=== PATIENT | female | born 1985 | race Hispanic/Latino ===

== ENCOUNTER 2018-04-25 00:11 | Emergency (ER) | payer MEDICARE ==
[~2018-04-25] VITALS: Ht 167.6 cm; Wt 111.1 kg
--- OUTSIDE RECORDS SUMMARY | 2018-04-25 00:14 | XMS REPORT | Clinical Summary ---
Author Author [facility] Organization [facility] Address Unknown Phone Unavailable Care Team Providers Care Lab Animal Technologist Name Role Phone PCP Unavailable Allergies No Known Allergies Medications End Date Status Medication Sig Dispensed Refills Start Date Active lisinopril (ZESTRIL) 2.5 Take 1 tablet 90 tablet 3 07/02/201 mg tabletIndications: by mouth 5 Diabetes mellitus daily. Active buPROPion (WELLBUTRIN XL) Take 1 tablet 30 tablet 3 300 mg extended release by mouth 5 tabletIndications: every Depression, BMI morning. 40.0-44.9, adult, Sleep difficulties, Anxiety state, unspecified Active traZODone (DESYREL) 100 Take 2 180 tablet 0 07/09/201 mg tabletIndications: tablets by 5 Sleep difficulties, mouth at Insomnia Disorder bedtime nightly. Active metFORMIN (GLUCOPHAGE) Take 2 90 tablet 0 06/28/201 500 mg tabletIndications: tablets by 7 Diabetes mellitus due to mouth 2 times underlying condition with daily (with diabetic nephropathy, meals). without long-term current use of insulin Active gabapentin (NEURONTIN) Take one 90 capsule 0 201 300 mg tablet before 7 capsuleIndications: bedtime. Diabetes mellitus due to underlying condition with diabetic nephropathy, without long-term current use of insulin Active glipiZIDE (GLUCOTROL) 5 Take 1 tablet 30 tablet 0 06/28/201 mg tabletIndications: by mouth 7 Diabetes mellitus due to daily. underlying condition with diabetic nephropathy, without long-term current use of insulin Active acetaminophen (TYLENOL) Take 1 tablet 30 tablet 0 07/28/201 500 mg tabletIndications: by mouth 8 RUQ pain every 6 hours as needed for Pain. Active ibuprofen (MOTRIN) 400 mg Take 1 tablet 30 tablet 0 tabletIndications: RUQ by mouth 8 pain every 6 hours as needed for Pain. Active Problems Problem Noted Date RUQ pain 07/27/2017 Obesity (BMI 30-39.9) 06/28/2016 Exercise counseling 06/28/2016 Dietary counseling 06/28/2016 Homeless 06/12/2016 PTSD (post-traumatic stress disorder) 07/09/2014 MDD (major depressive disorder) 07/09/2014 Polysubstance dependence in early, early partial, sustained full, or 07/09/2014 sustained partial remission Anxiety state, unspecified 07/02/2014 Diabetes mellitus 02/10/2014 BMI 40.0-44.9, adult 02/10/2014 Hyperlipidemia LDL goal < 100 02/10/2014 Sleep difficulties 02/10/2014 Back pain 09/02/2010 Encounters Care Team Description Date Type Specialty Devyn [place]obato Basic Needs 04/01/2018 Telephone Infectious Diseases Ander Stein MD Human immunodeficiency virus I infection (Primary Dx) 04/01/2018 Orders Only Infectious Diseases Devyn Lobato Basic Needs 03/29/2018 Telephone Infectious Diseases Devyn Lobato Basic Needs 03/20/2018 Telephone Infectious Diseases Parvin Dixon MD Chathampally, Yashwant, MD RUQ pain (Primary Dx) 07/27/2017 Emergency Emergency Medicine - 07/28/2017 after 04/24/2017 Immunizations Name Dates Previously Given Next Due Influenza A (H1N1) Vac 02/07/2013 Injection Influenza Vaccine 02/10/2014 PNEUMOCOCCAL 23-VALPS 02/07/2013 VACCINE 25 MCG/0.5 ML INJECTION PPD 06/12/2016 Tdap Tetanus, diphtheria, 02/10/2014 acellular pertussis Vaccine Family History Medical History Relation Name Comments Anxiety disorder Brother Depression Brother Cancer Maternal throat cancer Grandfather Diabetes Maternal Grandfather Hypertension Maternal Grandfather Lipids Maternal Grandfather Lipids Maternal Grandfather Thyroid Maternal Grandfather Blood Disease Maternal Grandmother Blood Disease Maternal Uncle Diabetes Mother Kidney disease Mother Depression Sister Diabetes Sister Lipids Sister Other denies fam hx of heart, strokes Relation Name Status Comments Brother Alive Brother Father Alive Maternal Grandfather Alive Maternal Grandfather Maternal Grandfather Maternal Grandmother Maternal Grandmother Maternal Uncle Mother Alive Paternal Grandfather Other don't know Paternal Grandmother Other don't know Sister Alive Son Alive Social History Date Tobacco Use Types Packs/Day Years Used Former Smoker 0.1 Smokeless Tobacco: Never Used Tobacco Cessation: Counseling Given: No Comments: once in a while Alcohol Use Drinks/Week oz/Week Comments Yes 1 Glasses of 0.5 occasionnaly wine Sex Assigned at Date Recorded Not on file Industry Job Start Date Occupation Not on file Not on file Not on file Travel End Travel History Travel Start No recent travel history available. Last Filed Vital Signs Time Taken Vital Sign Reading 07/28/2017 1:40 AM CDT Blood Pressure 130/70 07/28/2017 1:40 AM CDT Pulse 80 07/28/2017 1:40 AM CDT Temperature 37.2 C (99 F) 07/28/2017 1:40 AM CDT Respiratory Rate 18 07/28/2017 1:40 AM CDT Oxygen Saturation 98% - Inhaled Oxygen - Concentration - Weight - - Height - - Body Mass Index - Plan of Treatment Health Maintenance Due Date Last Done Comments Cervical Cancer Scrn (3 2006 Yrs) DM Retinal Exam (Yearly) 03/21/2015 03/21/2014 DM HGBA1C (Yearly) 07/10/2015 07/09/2014, 02/10/2014 DM Foot Exam (Yearly) 06/28/2017 06/28/2016 DM Microalbumin Urine 07/27/2018 07/27/2017, 06/28/2016, 06/28/2016, Scrn (Yearly) Additional history exists Procedures Comments Procedure Name Priority Date/Time Associated Diagnosis 12 LEAD EKG Routine 07/27/2017 11:[address] ABDOMEN AND PELVIS STAT 07/27/2017 RUQ pain CONTRAST 10:02 PM CDT POCT URINE DIPSTICK - STAT 07/27/2017 9:27 PM CDT UA CHEMISTRIES STAT 07/27/2017 9:20 PM CDT LIPASE STAT 07/27/2017 7:50 PM CDT LIVER PROFILE STAT 07/27/2017 7:50 PM CDT CBC/DIFF STAT 07/27/2017 7:50 PM CDT BMP POC Routine 07/27/2017 7:23 PM CDT VBG POC Routine 07/27/2017 7:23 PM CDT after 04/24/2017 Results * 12 LEAD EKG (07/27/2017 11:40 PM CDT) 12 LEAD EKG FOR SMS CHP Jae Nash [facility] Test Date:2017-07-27 Pat Name: ARELY JOY Department: Room: Gender: F 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 2.Status post cholecystectomy with prominence of the common bile duct and intrahepatic bile ducts, without obstructing lesion identified. Dictated By: Koby Barajas MD, 07/27/2017 10:19 PM I have reviewed the study and agree with the findings in this report. Signed By: Sunitha Mancuso MD, 07/27/2017 10:20 PM Narrative Performed At EXAM: CT ABDOMEN AND PELVIS WITH CONTRAST SMS DATE: 07/27/2017 9:37 PM INDICATION: RUQ, RLQ, and L flank pain with h/o cholecystectomy with complications and retained stones. RUQ pain COMPARISON: None. TECHNIQUE: Volumetric CT acquisition of the abdomen and pelvis after the intravenous administration contrast. Axial, coronal and sagittal reconstructions. Postcontrast phases: Venous. IV contrast: 145 mL Omnipaque 300. Enteric contrast: None. DLP: 1224 mGy-cm FINDINGS: Lines, tubes and hardware: None. Lower thorax: Minimal subsegmental atelectasis is present in the posterior lower lobes. Liver: Normal. Biliary tree: There is prominence of the common bile duct measuring 0.9 cm, without obstructing lesion identified. There is mild intrahepatic biliary ductal dilatation. Gallbladder: Status post cholecystectomy. Clips are present in the gallbladder fossa. Pancreas: Normal. Spleen: Normal. Adrenals: Normal. Kidneys and ureters: Normal. Bladder: Normal. Reproductive organs: Uterus and adnexa are unremarkable. Gastrointestinal tract: Stomach: Normal. Small bowel: Normal. Colon: Normal. Appendix: Normal. Peritoneum, mesentery and retroperitoneum: No free air, ascites or loculated fluid. Lymph nodes: Normal. Vasculature: Normal. Bones: No acute abnormality. Soft tissues: A small fat-containing umbilical hernia is present. Procedure Note Interface, Rad/Mammog In - 07/27/2017 10:46 PM CDT EXAM: CT ABDOMEN AND PELVIS WITH CONTRAST DATE: 07/27/2017 9:37 PM INDICATION: RUQ, RLQ, and L flank pain with h/o cholecystectomy with complications and retained stones. RUQ pain COMPARISON: None. TECHNIQUE: Volumetric CT acquisition of the abdomen and pelvis after the intravenous administration contrast. Axial, coronal and sagittal reconstructions. Postcontrast phases: Venous. IV contrast: 145 mL Omnipaque 300. Enteric contrast: None. DLP: 1224 mGy-cm FINDINGS: Lines, tubes and hardware: None. Lower thorax: Minimal subsegmental atelectasis is present in the posterior lower lobes. Liver: Normal. Biliary tree: There is prominence of the common bile duct measuring 0.9 cm, without obstructing lesion identified. There is mild intrahepatic biliary ductal dilatation. Gallbladder: Status post cholecystectomy. Clips are present in the gallbladder fossa. Pancreas: Normal. Spleen: Normal. Adrenals: Normal. Kidneys and ureters: Normal. Bladder: Normal. Reproductive organs: Uterus and adnexa are unremarkable. Gastrointestinal tract: Stomach: Normal. Small bowel: Normal. Colon: Normal. Appendix: Normal. Peritoneum, mesentery and retroperitoneum: No free air, ascites or loculated fluid. Lymph nodes: Normal. Vasculature: Normal. Bones: No acute abnormality. Soft tissues: A small fat-containing umbilical hernia is present. IMPRESSION IMPRESSION: 1. No acute abnormality in the abdomen or pelvis. 2. Status post cholecystectomy with prominence of the common bile duct and intrahepatic bile ducts, without obstructing lesion identified. Dictated By: Koby Barajas MD, 07/27/2017 10:19 PM I have reviewed the study and agree with the findings in this report. Signed By: Sunitha Mancuso MD, 07/27/2017 10:20 PM Performing Organization Address [facility] Phone Number SMS * POCT URINE DIPSTICK - (07/27/2017 9:27 PM CDT) pass Control negative * UA CHEMISTRIES (07/27/2017 9:20 PM CDT) Color Yellow [facility] Clarity Hazy [facility] Spec [place] 1.012 1.001 - 1.035 [facility] pH 7.0 5 - 8 [facility] Protein 2+ (A) NEG [facility] Glucose Negative NEG [facility] Ketone Negative NEG [facility] Bilirubin Negative NEG [facility] Nitrate Negative NEG [facility] 2 Urobilinogen <1.0 0.2 - 1.0 EU/dL [facility] Leukocyte Trace (A) NEG [facility] Blood 3+ (A) NEG [facility] RBC 1 0 - 4 /HPF [facility] WBC 6 (H) 0 - 5 /HPF [facility] Bacteria Few [facility] Epithelial Cell 3 /HPF [facility] Mucous Present [facility] Specimen Urine Performing Organization Address [facility] Phone Number MISYS [facility] * LIVER PROFILE (07/27/2017 7:50 PM CDT) T Protein 7.3 6.4 - 8.2 g/dL [facility] 1 Albumin 3.4 3.4 - 5.0 g/dL [facility] T Bilirubin 0.5 0.2 - 1.0 mg/dL [facility] 1 Alk Phos 96 45 - 117 U/L [facility] AST 21 15 - 37 U/L [facility] ALT 22 12 - 78 U/L [facility] D Bilirubin 0.1 0.0 - 0.2 mg/dL [facility] 1 Specimen Blood Performing Organization Address [facility]/Zipcode Phone Number MISYS [facility] 1 * LIPASE (07/27/2017 7:50 PM CDT) Lipase 78 73 - 393 U/L [facility] 1 Specimen Blood Performing Organization Address [facility] Phone Number [facility] 1 * CBC/DIFF (07/27/2017 7:50 PM CDT) WBC 7.5 4.5 - 11.0 K/uL [facility] 2 RBC 4.26 4.20 - 5.40 M/uL [facility] 2 Hemoglobin 12.0 12.0 - 16.0 g/dL [facility] 2 Hematocrit 36.0 (L) 37.0 - 47.0 % [facility] 2 MCV 85 82 - 92 fL [facility] 2 MCH 28.2 27.0 - 32.0 pg LB [facility] 2 MCHC 33.3 32.0 - 36.0 g/dL [facility] 2 RDW 37.1 36.4 - 46.3 fL [facility] 2 Platelet 321 150 - 400 K/uL [facility] 2 Mean Platelet 9.3 (L) 9.4 - 12.4 fL [facility] Volume [facility] 2 Percent NRBC 0.0 [facility] Absolute NRBC 0.00 [facility] 2 Neutrophil 75.4 (H) 34.0 - 70.0 % [facility] Lymphocyte 16.8 (L) 20.0 - 50.0 % [facility] Monocyte 7.1 5.0 - 12.0 % [facility] Eosinophil 0.1 (L) 0.7 - 5.0 % [facility] Basophil 0.3 0.1 - 1.2 % [facility] Pct Immat Gran 0.3 0.0 - 0.5 [facility] 2 Neutrophil, Abs 5.67 1.56 - 6.13 K/uL [facility] 2 Lymphocyte, Abs 1.26 1.18 - 3.74 K/uL [facility] 2 Monocyte, Abs 0.53 (H) 0.24 - 0.36 K/uL [facility] 2 Eosinophil, Abs 0.01 (L) 0.04 - 0.36 K/uL [facility] 2 Basophil, Abs 0.02 0.01 - 0.08 K/uL [facility] 2 Absol Immat 0.02 0.00 - 0.03 K/uL [facility] Gran MAIN-[facility] 2 Specimen Blood Performing Organization Address [facility] Phone Number [facility] 2 * VBG POC (07/27/2017 7:23 PM CDT) pH, Carol POC 7.63 (H)Comment: Spec sent to 7.33 - 7.43 [facility] Lab [facility] 1 pCO2, Carol POC 16.7 (L) 38.0 - 50.0 mm Hg [facility] 1 pO2, Carol POC 128 (H) 50 - 75 mm Hg [facility] 1 Base Deficit, 1 [facility] Carol POC [facility] 1 HCO3, Carol POC 17.3 (L) 22.0 - 26.0 mmol/L [facility] 1 % Sat, Carol POC 100 (H) 60 - 85 % [facility] 1 Lactic Acid, 1.10 0.4 - 2.0 mmol/L [facility] Carol POC [facility] 1 TCO2, CAROL POC 18 (L) 21 - 32 mmol/L [facility] 1 Performing Organization Address [facility] Phone Number [facility] 1 * BMP POC (07/27/2017 7:23 PM CDT) CO2 POC 19 (L)Comment: Spec sent to 21 - 32 mmol/L [facility] Lab [facility]IN[facility] 1 Chloride POC 106 98 - 107 mmol/L [facility] 1 Potassium POC 3.8 3.50 - 5.10 mmol/L [facility] 1 Sodium POC 140 136 - 145 mmol/L [facility] 1 Glucose POC 135 (H) 74 - 106 mg/dL [facility] 1 Urea Nitrogen 7 7 - 18 mg/dL [facility] POC [facility] 1 Creatinine POC 0.5 (L) 0.6 - 1.3 mg/dL [facility] 1 Calcium Ionized 0.79 (L) 1.15 - 1.29 mmol/L [facility] POC [facility] 1 Hemoglobin POC 12.9 12.0 - 16.0 g/dL [facility] 1 Hematocrit POC 38.0 37.0 - 47.0 % [facility] 1 GFR, Estimated >60 mL/min/1.73 m2 [facility] 1 GFR, Estim, >60 mL/min/1.73 m2 [facility] Afr-Am MAIN-STATION 1 Performing Organization Address City/State/Zipcode Phone Number MISYS [facility] 1 after 04/24/2017
--- OUTSIDE RECORDS SUMMARY | 2018-04-25 00:15 | XMS REPORT | Summary of Care ---
Author Organization Unknown Address Unknown Phone Unavailable Encounter HQ Renato_jay jay(SIMONA) [id number] Date(s): 06/16/13 - 06/16/13 [facility] [id number] Discharge Disposition: Home Physician Attending: Betsey Guardado MD Reason for Visit 724.02 Problem List No data available for this section Allergies, Adverse Reactions, Alerts Substance Reaction Severity Status NKDA Active Medications No data available for this section Medications Administered During Your Visit No data available for this section Immunizations No data available for this section
--- OUTSIDE RECORDS SUMMARY | 2018-04-25 00:15 | XMS REPORT | Continuity of Care Document ---
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 06/04/2013 [facility] Serology RPR Non Reactive 06/04/2013 [facility] Vital Signs Vital Sign Value Date Comments Source Systolic (mm Hg) 130 07/28/2017 [facility] Diastolic (mm Hg) 70 07/28/2017 [facility] Heart Rate 80 07/28/2017 [facility] Temperature Oral (F) 37.22 Nancy 07/28/2017 [facility] Respitory Rate 18 07/28/2017 [facility] Systolic (mm Hg) 137 07/28/2017 [facility] Diastolic (mm Hg) 112 07/28/2017 [facility] Heart Rate 99 07/28/2017 [facility] Temperature Oral (F) 37.89 Nancy 07/28/2017 [facility] Respitory Rate 20 07/27/2017 [facility] Temperature Oral (F) 98.0 F 10/28/2015 [facility] Systolic (mm Hg) 132 10/28/2015 [facility] Diastolic (mm Hg) 83 10/28/2015 [facility] Heart Rate 88 10/28/2015 [facility] Rate 16 10/28/2015 [facility] Temperature Oral (F) 98.2 F 10/28/2015 [facility] Heart Rate 73 10/28/2015 [facility] Respitory Rate 16 10/28/2015 [facility] Systolic (mm Hg) 119 10/28/2015 [facility] Diastolic (mm Hg) 78 10/28/2015 [facility] Respitory Rate 16 10/28/2015 [facility] Temperature Oral (F) 98.5 F 10/28/2015 [facility] Heart Rate 72 10/28/2015 [facility] Systolic (mm Hg) 119 10/28/2015 [facility] Diastolic (mm Hg) 66 10/28/2015 [facility] Weight 77.273 10/27/2015 [facility] BMI Calculated 26.68 10/27/2015 [facility] Height 170.18 cm 10/27/2015 [facility] Systolic (mm Hg) 133 06/29/2015 [facility] Diastolic (mm Hg) 90 06/29/2015 [facility] Respitory Rate 18 06/29/2015 [facility] Heart Rate 100 06/29/2015 [facility] Temperature Oral (F) 98.1 F 06/29/2015 [facility] Respitory Rate 18 06/29/2015 [facility] Heart Rate 105 06/29/2015 [facility] Systolic (mm Hg) 138 06/29/2015 [facility] Diastolic (mm Hg) 88 06/29/2015 [facility] Temperature Oral (F) 99.6 F 06/29/2015 [facility] Systolic (mm Hg) 142 06/29/2015 [facility] Diastolic (mm Hg) 86 06/29/2015 [facility] Respitory Rate 18 06/29/2015 [facility] Heart Rate 102 06/29/2015 [facility] Temperature Oral (F) 99.1 F 06/29/2015 [facility] BMI Calculated 39.24 06/27/2015 [facility] Weight 113.636 06/27/2015 [facility] Height 170.18 cm 06/27/2015 [facility] Respitory Rate 16 06/30/2013 [facility] Systolic (mm Hg) 115 06/30/[facility] Diastolic (mm Hg) 77 06/30/2013 [facility] Heart Rate 77 06/30/2013 [facility] Weight 237 06/30/2013 [facility] Height 66 06/04/2013 [facility] Systolic (mm Hg) 127 06/04/2013 [facility] Diastolic (mm Hg) 82 06/04/2013 [facility] Heart Rate 82 06/04/2013 [facility] Respitory Rate 16 06/04/2013 [facility] Weight 234.25 06/04/2013 [facility] Encounters Location Location Details Encounter Type Encounter Number Reason For Visit Attending Provider ADM Date DC Date Status Source [facility] Office Visit [id number] Betsey Guardado MD 06/04/2013 06/04/2013 [facility] Outpatient [id number] Betsey Guardado 2013 06/17/2013 [facility] Lab Report [id number] Betsey Guardado MD 06/19/2013 06/19/2013 [facility] Office Visit [id number] Betsey Guardado MD 06/30/2013 06/30/2013 [facility] Inpatient [id number] Gabrielle Bravo 06/27/2015 06/29/2015 [facility] Observation [id number] Giorgio Jacobo 10/27/2015 10/28/2015 [facility] Emergency Center ([id number]) [facility] [id number] Parvin Dixon MD 07/27/2017 07/28/2017 [facility] TH ID Telephone [id number] Devyn Lobato 03/20/2018 [facility] Procedures Procedure Code Date Perfomer Comments Source 12 LEAD EKG 57317 07/28/[address] [facility] [address] ABDOMEN AND PELVIS CONTRAST 75621 07/28/2017 [facility] POCT URINE DIPSTICK - 480497 07/28/2017 [facility] UA CHEMISTRIES 87385 07/28/2017 [facility] CBC/DIFF 44509 07/28/2017 [facility] LIVER PROFILE 19441 07/28/2017 [facility] LIPASE 19016 07/28/2017 [facility] VBG POC 69721 07/28/2017 Unknown [facility] BMP POC 65422 07/28/2017 Unknown [facility] Perfusion of small intestine [id number] 05/28/2015 [facility] smoking/tobacco cessation, patient education and counseling 14 06/30/2013 DONE [facility] smoking/tobacco cessation, patient education and counseling 14 06/04/2013 DONE [facility] section [id number] 09/28/2007 [facility] Cholecystectomy [id number] [facility]
--- OUTSIDE RECORDS SUMMARY | 2018-04-25 00:16 | XMS REPORT | Continuity of Care Document ---
Author Author [facility] Address Unknown Phone Unavailable Care Team Providers Care Certified Surgical Technician Name Role Phone MD Geo, Betsey RICHTER Unavailable Insurance Providers Payer name Policy type / Coverage type Policy ID Covered alliance party ID Policy [place] - [place]ADITIONAL Encounters Encounter Performer Location Date Office Visit Betsey Guardado MD [facility] June 30, 2013 Problems Problem Effective Dates Problem Status DIABETES MELLITUS, TYPE II, UNCONTROLLED Jun 04, 2013 Active PREVENTIVE HEALTH CARE Jun 04, 2013 Active ROUTINE GYNECOLOGICAL EXAMINATION Jun 04, 2013 Active FATIGUE Jun 04, 2013 Active HYPERLIPIDEMIA Jun 04, 2013 Active BACK PAIN, LUMBAR, CHRONIC Jun 04, 2013 Active BODY MASS INDEX 37.0-37.9 ADULT Jun 04, 2013 Active SCREENING EXAMINATION FOR VENEREAL DISEASE Jun 04, 2013 Active DEPRESSION Jun 04, 2013 Active GALLSTONES June 30, 2013 Active UPPER RESPIRATORY INFECTION June 30, 2013 Active Procedures Date Description Comments Jun 04, 2013 smoking status current some day smoker Jun 04, 2013 smoking/tobacco cessation, patient education and counseling DONE June 30, 2013 smoking/tobacco cessation, patient education and counseling DONE Medications Medication Instructions Start Date Status METFORMIN HCL 1000 MG TABS Take one tablet by mouth two times a day Jun 04, 2013 Active NAPROXEN SODIUM 550 MG TABS TAKE ONE TABLET BY MOUTH TWICE A DAY PRN FOR PAIN Jun 04, 2013 Inactive GLIPIZIDE 5 MG TABS Take one tablet by mouth once a day June 30, 2013 Active ZITHROMAX Z-MARITZA 250 MG TABS use as directed June 30, 2013 Active Immunizations Vaccine Date Status pneumococcal immunization administered Jun 04, 2013 completed influenza immunization (Flu Vax) has been administered Jun 04, 2013 completed Vital Signs Date Description Test Result Jun 04, 2013 height E&M - 8302-2 HEIGHT 66 in Jun 04, 2013 blood pressure, systolic - 8480-6 BP SYSTOLIC 127 mm Hg Jun 04, 2013 blood pressure, diastolic - 8462-4 BP DIASTOLIC 82 mm Hg Jun 04, 2013 pulse rate E&M - 8867-4 PULSE RATE 82 /min Jun 04, 2013 respiratory rate E&M - 9279-1 RESP RATE 16 /min Jun 04, 2013 weight Marjorie&M - 3141-9 WEIGHT 234.25 lb June 30, 2013 respiratory rate E&M - 9279-1 RESP RATE 16 /min June 30, 2013 blood pressure, systolic - 8480-6 BP SYSTOLIC 115 mm Hg June 30, 2013 blood pressure, diastolic - 8462-4 BP DIASTOLIC 77 mm Hg June 30, 2013 pulse rate E&M - 8867-4 PULSE RATE 77 /min June 30, 2013 weight Norman - 3141-9 WEIGHT 237 lb Results Date Description Test Name Value Reference Interpretation Status Jun 04, 2013 hemoglobin, blood HGB 14.2 g/dL 12.0-16.0 Jun 04, 2013 hematocrit, blood HCT 42.7 % 36.0-48.0 Jun 04, 2013 platelet count PLATELETS 426 K/CMM /mm3 133-450 Jun 04, 2013 hemoglobin A1C, blood, as % of total hemoglobin HGBA1C 7.9 % <=5.6 High Jun 04, 2013 thyroid stimulating hormone, serum TSH 1.290 uIU/mL 0.360-3.740 Jun 04, 2013 cholesterol, serum CHOLESTEROL 260 mg/dl <=199 High Jun 04, 2013 triglyceride, serum, fasting TRIGLYCERIDE 235 mg/dl <=149 High Jun 04, 2013 HDL cholesterol, serum HDL 64 mg/dl >=61 Jun 04, 2013 LDL cholesterol, serum LDL 149 mg/dl <=99 High Jun 04, 2013 sodium, serum SODIUM 138 MEQ/L mmol/L 135-145 Jun 04, 2013 potassium, serum POTASSIUM 4.2 MEQ/L mmol/L 3.5-5.1 Jun 04, 2013 creatinine, serum CREATININE 0.5 mg/dL 0.5-1.4 Jun 04, 2013 urea nitrogen, blood BUN 11 mg/dL 7-22 Jun 04, 2013 urea nitrogen/creatinine ratio, serum BUN/CREAT 22 null 6-25 Jun 04, 2013 albumin, serum ALBUMIN 4.0 g/dL 3.5-5.0 Jun 04, 2013 calcium, serum CALCIUM 9.4 mg/dL 8.5-10.5 Jun 04, 2013 alanine aminotransferase (SGPT), serum SGPT (ALT) 26 U/L 0-65 Jun 04, 2013 aspartate aminotransferase (SGOT), serum SGOT (AST) 14 U/L 0-37 Jun 04, 2013 alkaline phosphatase, serum ALK PHOS 86 U/L 39-136 Jun 04, 2013 rapid plasma reagin antibody, serum RPR Non Reactive null Non Reactive
--- OUTSIDE RECORDS SUMMARY | 2018-04-25 00:16 | XMS REPORT | Continuity of Care Document ---
Author Author [facility] Organization [facility] Address Unknown Phone Unavailable Care Team Providers Care Web Analytics Developer Name Role Phone MD Geo, Betsey RICHTER Unavailable Insurance Providers Payer name Policy type / Coverage type Policy ID Covered libertarian ID Policy [place] Encounters Encounter Performer Location Date Lab Report Betsey Guardado MD [facility] [place] Jun 19, 2013 Problems Problem Effective Dates Problem Status [...] 2013 Active DEPRESSION Jun 04, 2013 Active Procedures Date Description Comments Jun [...] DAY PRN FOR PAIN Jun 04, 2013 Active Immunizations Vaccine Date Status pneumococcal [...] RATE 16 /min Jun 04, 2013 weight E&M - 3141-9 WEIGHT 234.25 lb Results Date Description Test Name Value [...]
--- OUTSIDE RECORDS SUMMARY | 2018-04-25 00:16 | XMS REPORT | Continuity of Care Document ---
Author Author [facility] Address Unknown Phone Unavailable Care Team Providers Care Diamond Sizer Name Role Phone Geo MORALES, Betsey RICHTER Unavailable Insurance Providers Payer name Policy type / Coverage type Policy ID Covered libertarian ID Policy [place]AD[place] Encounters Encounter Performer Location Date Office Visit Betsey Guardado MD [facility] Jun 04, 2013 Problems Problem Effective Dates Problem Status [...]
--- OUTSIDE RECORDS SUMMARY | 2018-04-25 00:16 | XMS REPORT | Clinical Summary ---
Author Author [facility] Organization [facility] Address Unknown Phone Unavailable Care Team Providers Care Music Professor Name Role Phone PCP Unavailable Allergies No [...] Encounters Care Team Description Date Type Specialty Parvin Dixon MD Chathampally, Yashwant, MD RUQ pain (Primary Dx) 07/27/2017 Emergency Emergency Medicine - 07/28/2017 after 03/09/2017 Immunizations Name Dates Previously Given Next Due [...] POC Routine 07/27/2017 7:23 PM CDT after 03/09/2017 Results * 12 LEAD EKG (07/27/2017 11:40 PM CDT) 12 LEAD EKG FOR [facility] CHP Jae Nash [facility] Test Date:2017-07-27 Pat Name: ARELY JOY Department: Room: Gender: F Debarker Operator: [id number] :[id number] 06-16 Requested By: Order Number: [id number] MD: Omar CODY Measurements Intervals [place] Rate: 79 P:46 [place]: 163 QRS: 38 QRSD: 88 T:67 QT: [...] MD, 07/27/2017 10:20 PM Performing Organization Address City/State/Zipcode Phone Number SMS * POCT URINE DIPSTICK - (07/27/2017 9:27 PM CDT) [facility] pass Control negative * UA CHEMISTRIES (07/27/2017 9:20 PM CDT) Pathologist [facility] Color Yellow [facility] MAIN-STATION 2 Clarity Hazy [facility] MAIN-STATION 2 Spec [place] 1.012 1.001 - 1.035 [facility] MAIN-STATION 2 pH 7.0 5 - 8 [facility] MAIN-STATION 2 Protein 2+ (A) NEG [facility]IN-STATION 2 Glucose Negative NEG [facility]-ST[facility] 2 Ketone Negative NEG [facility]-ST[facility] 2 Bilirubin Negative NEG [facility]IN-ST[facility] 2 Nitrate Negative NEG [facility]IN-ST[facility] 2 Urobilinogen <1.0 0.2 - 1.0 EU/dL [facility] MAIN-STATION 2 Leukocyte Trace (A) NEG [facility]IN-ST[facility] 2 Blood 3+ (A) NEG [facility] MAIN-STATION 2 RBC 1 0 - 4 /HPF LB MAIN-STATION 2 WBC 6 (H) 0 - 5 /HPF [facility] 2 Bacteria Few [facility]IN[facility]ST[facility] 2 Epithelial Cell 3 /HPF [facility] MAIN-STATION 2 Mucous Present [facility] MAIN-STATION 2 Specimen Urine Performing Organization Address [facility] [place] Number MISYS [facility] MAIN-STATION 2 * LIVER PROFILE (07/27/2017 7:50 PM CDT) [facility] T Protein 7.3 6.4 - 8.2 g/dL [facility] MAIN-STATION 1 Albumin 3.4 3.4 - 5.0 g/dL [facility] MAIN-STATION 1 T Bilirubin 0.5 0.2 - 1.0 mg/dL [facility] MAIN-STATION 1 Alk Phos 96 45 - 117 U/L [facility] MAIN-STATION 1 AST 21 15 - 37 U/L [facility] MAIN-STATION 1 ALT 22 12 - 78 U/L [facility] MAIN-STATION 1 D Bilirubin 0.1 0.0 - 0.2 mg/dL [facility] MAIN-STATION 1 Specimen Blood Performing Organization Address [facility] [place] Number MISYS [facility] MAIN-STATION 1 * LIPASE (07/27/2017 7:50 PM CDT) [facility] Lipase 78 73 - 393 U/L [facility] MAIN-STATION 1 Specimen Blood Performing Organization Address City/State/Zipcode Phone Number MISYS [facility] MAIN-STATION 1 * CBC/DIFF (07/27/2017 7:50 PM CDT) WBC 7.5 4.5 - 11.0 K/uL [facility] MAIN-STATION 2 RBC 4.26 4.20 - 5.40 M/uL [facility] MAIN-STATION 2 Hemoglobin 12.0 12.0 - 16.0 g/dL [facility] MAINSTATION 2 Hematocrit 36.0 (L) 37.0 - 47.0 % [facility] MAINSTATION 2 MCV 85 82 - 92 fL [facility] MAIN-STATION 2 MCH 28.2 27.0 - 32.0 pg [facility] MAIN-STATION 2 MCHC 33.3 32.0 - 36.0 g/dL [facility] MAIN-STATION 2 RDW 37.1 36.4 - 46.3 fL [facility] MAIN-STATION 2 Platelet 321 150 - 400 K/[facility] Mean Platelet 9.3 (L) 9.4 - 12.4 fL [facility] Volume MAIN-STATION 2 Percent NRBC 0.0 [facility] MAIN-STATION 2 Absolute NRBC 0.00 [facility] MAIN-STATION 2 Neutrophil 75.4 (H) 34.0 - 70.0 % [facility] MAIN-STATION 2 Lymphocyte 16.8 (L) 20.0 - 50.0 % [facility] MAIN-STATION 2 Monocyte 7.1 5.0 - 12.0 % [facility] MAIN-STATION 2 Eosinophil 0.1 (L) 0.7 - 5.0 % [facility] MAIN-STATION 2 Basophil 0.3 0.1 - 1.2 % [facility] MAIN-STATION 2 Pct Immat Gran 0.3 0.0 - 0.5 [facility] MAIN-STATION 2 Neutrophil, Abs 5.67 1.56 - 6.13 K/uL [facility] MAIN-STATION 2 Lymphocyte, Abs 1.26 1.18 - 3.74 K/uL [facility] MAIN-STATION 2 Monocyte, Abs 0.53 (H) 0.24 - 0.36 K/uL [facility] MAIN-STATION 2 Eosinophil, Abs 0.01 (L) 0.04 - 0.36 K/uL [facility] MAIN-STATION 2 Basophil, Abs 0.02 0.01 - 0.08 K/uL [facility] MAIN-STATION 2 Absol Immat 0.02 0.00 - 0.03 K/uL [facility] Gran MAIN-STATION 2 Specimen Blood Performing Organization Address [facility] Phone Number [facility] MAINSTATION 2 * VBG POC (07/27/2017 7:23 PM CDT) pH, Carol POC 7.63 (H)Comment: Spec sent to 7.33 - 7.43 [facility] Lab MAIN-STATION 1 pCO2, Carol POC 16.7 (L) 38.0 - 50.0 mm Hg [facility] MAIN-STATION 1 pO2, Carol POC 128 (H) 50 - 75 mm Hg [facility] MAIN-STATION 1 Base Deficit, 1 [facility] Carol POC MAIN-STATION 1 HCO3, Carol POC 17.3 (L) 22.0 - 26.0 mmol/L [facility] MAIN-STATION 1 % Sat, Carol POC 100 (H) 60 - 85 % [facility] MAIN-STATION 1 Lactic Acid, 1.10 0.4 - 2.0 mmol/L [facility] Carol POC MAIN-STATION 1 TCO2, CAROL POC 18 (L) 21 - 32 mmol/L [facility] ER-STATION 1 Performing Organization Address [facility] [place] Number [facility] MAIN-STATION 1 * BMP POC (07/27/2017 7:23 PM CDT) CO2 POC 19 (L)Comment: Spec sent to 21 - 32 mmol/L [facility] Lab MAIN-STATION 1 Chloride POC 106 98 - 107 mmol/L [facility] MAIN-STATION 1 Potassium POC 3.8 3.50 - 5.10 mmol/L [facility] MAIN-STATION 1 Sodium POC 140 136 - 145 mmol/L [facility] MAIN-STATION 1 Glucose POC 135 (H) 74 - 106 mg/dL [facility] MAIN-STATION 1 Urea Nitrogen 7 7 - 18 mg/dL [facility] POC MAIN-STATION 1 Creatinine POC 0.5 (L) 0.6 - 1.3 mg/dL [facility] MAIN-STATION 1 Calcium Ionized 0.79 (L) 1.15 - 1.29 mmol/L [facility] POC MAIN-STATION 1 Hemoglobin POC 12.9 12.0 - 16.0 g/dL [facility] MAIN-STATION 1 Hematocrit POC 38.0 37.0 - 47.0 % [facility] MAIN-STATION 1 GFR, Estimated >60 mL/min/1.73 m2 [facility] MAIN-STATION 1 GFR, Estim, >60 mL/min/1.73 m2 [facility] MAIN-STATION 1 Performing Organization Address City/State/Zipcode Phone Number DOMO [facility] MAIN-STATION 1 after 03/09/2017 Insurance Type Payer Benefit Subscriber ID Effective Phone Address Plan / Dates Group [facility] xxxxxxxxx 2013-P [phone] [facility] [id number] [facility] [id number]
--- OUTSIDE RECORDS SUMMARY | 2018-04-25 00:16 | XMS REPORT | Clinical Summary ---
Author Author [facility] Organization [facility] Address Unknown Phone Unavailable Care Team Providers Care Swiss Machinist Name Role Phone PCP Unavailable Allergies No [...] 07/27/2017 Emergency Emergency Medicine - 07/28/2017 after 03/18/2017 Immunizations Name Dates Previously Given Next Due [...] Body Mass Index - Plan of Treatment Care Team Description Date Type Specialty New Patient 04/01/2018 Office Visit New Patient 04/01/2018 Office Visit New Patient 04/01/2018 Ancillary Radiology Procedure New Patient 04/01/2018 Lab Appointment Lab Health Maintenance Due Date Last Done Comments [...] POC Routine 07/27/2017 7:23 PM CDT after 03/18/2017 Results * 12 LEAD EKG (07/27/2017 11:40 PM CDT) 12 LEAD EKG FOR SMS CHP Jae Nash [facility] Test Date:2017-07-27 Pat Name: ARELY JOY Department: Room: Gender: F Customer Business Manager: [id number] :1985-0 06-16 Requested By: Order Number: [email or web address] payton MD: Omar CODY Measurements Intervals [place] Rate: 79 P:46 [place]: 163 QRS: 38 QRSD: 88 T:67 QT: [...] MD, 07/27/2017 10:20 PM Performing Organization Address [facility] Phone Number SMS * POCT URINE DIPSTICK - (07/27/2017 9:27 PM CDT) Pathologist [facility] pass Control negative * UA CHEMISTRIES (07/27/2017 9:20 PM CDT) Pathologist [facility] Color Yellow [facility] 2 Clarity Hazy [facility] 2 Spec [place] 1.012 1.001 - 1.035 [facility] MAIN-STATION 2 [...] MAIN-STATION 2 Specimen Urine Performing Organization Address [facility] Phone Number MISYS [facility] MAIN-STATION 2 * LIVER PROFILE (07/27/2017 7:50 PM CDT) Pathologist [facility] T Protein 7.3 6.4 - 8.2 g/dL [facility]IN[facility]ST[facility] 1 Albumin 3.4 3.4 - 5.0 g/dL [facility] 1 T Bilirubin 0.5 0.2 - 1.0 mg/dL [facility] 1 Alk Phos 96 45 - 117 U/L [facility] 1 AST 21 15 - 37 U/L [facility]IN-STATION 1 ALT 22 12 - 78 U/L [facility] MAIN-STATION 1 D Bilirubin 0.1 0.0 - 0.2 mg/dL LB MAIN-STATION 1 Specimen Blood Performing Organization Address [facility] Phone Number MISYS [facility] MAIN-STATION 1 * LIPASE (07/27/2017 7:50 PM CDT) Lipase 78 73 - 393 U/L [facility] MAIN-STATION 1 Specimen Blood Performing Organization Address City/State/Zipcode Phone Number DOMO [facility] MAIN-STATION 1 * CBC/DIFF (07/27/2017 7:50 PM CDT) WBC 7.5 4.5 - 11.0 K/uL [facility] MAIN-STATION 2 RBC 4.26 4.20 - 5.40 M/uL LB MAIN-STATION 2 Hemoglobin 12.0 12.0 - 16.0 g/dL [facility] MAIN-STATION 2 Hematocrit 36.0 (L) 37.0 - 47.0 % LB MAIN-STATION 2 MCV 85 82 - 92 fL [facility] MAIN-STATION 2 MCH 28.2 27.0 - 32.0 pg LB MAIN-STATION 2 MCHC 33.3 32.0 - 36.0 g/dL [facility] MAIN-STATION 2 RDW 37.1 36.4 - 46.3 fL [facility] MAIN-STATION 2 Platelet 321 150 - 400 K/uL [facility] MAIN-STATION 2 Mean Platelet 9.3 (L) 9.4 - 12.4 fL [facility] Volume MAIN-STATION 2 Percent NRBC 0.0 [facility] MAIN-STATION 2 Absolute NRBC 0.00 [facility] MAIN-STATION 2 Neutrophil 75.4 (H) 34.0 - 70.0 % LB MAIN-STATION 2 Lymphocyte 16.8 (L) 20.0 - 50.0 % [facility] MAIN-STATION 2 Monocyte 7.1 5.0 - 12.0 % [facility] MAIN-STATION 2 Eosinophil 0.1 (L) 0.7 - 5.0 % [facility] MAIN-STATION 2 Basophil 0.3 0.1 - 1.2 % [facility] MAIN-STATION 2 Pct Immat Gran 0.3 0.0 - 0.5 [facility] MAIN-STATION 2 Neutrophil, Abs 5.67 1.56 - 6.13 K/uL [facility] MAIN-STATION 2 Lymphocyte, Abs 1.26 1.18 - 3.74 K/uL [facility] MAIN-STATION 2 Monocyte, Abs 0.53 (H) 0.24 - 0.36 K/uL [facility] MAIN-STATION 2 Eosinophil, Abs 0.01 (L) 0.04 - 0.36 K/uL [facility] MAIN-STATION 2 Basophil, Abs 0.02 0.01 - 0.08 K/uL [facility] MAIN-STATION 2 Absol Immat 0.02 0.00 - 0.03 K/uL [facility] Gran MAIN-STATION 2 Specimen Blood Performing Organization Address [facility] Phone Number DOMO [facility] MAINSTATION 2 * VBG POC (07/27/2017 7:23 PM CDT) pH, Carol POC 7.63 (H)Comment: Spec sent to 7.33 - 7.43 [facility] Lab MAIN-STATION 1 pCO2, Carol POC 16.7 (L) 38.0 - 50.0 mm Hg [facility] MAIN-STATION 1 pO2, Carol POC 128 (H) 50 - 75 mm Hg [facility] MAIN-STATION 1 Base Deficit, 1 [facility] Carol POC MAIN-STATION 1 HCO3, Carol POC 17.3 (L) 22.0 - 26.0 mmol/L [facility] MAIN-STATION 1 % Sat, Carol POC 100 (H) 60 - 85 % [facility] MAIN-STATION 1 Lactic Acid, 1.10 0.4 - 2.0 mmol/L [facility] Carol POC MAIN-STATION 1 TCO2, CAROL POC 18 (L) 21 - 32 mmol/L [facility] MAIN-STATION 1 Performing Organization Address [facility] Phone [facility] 1 * BMP POC (07/27/2017 7:23 PM CDT) CO2 POC 19 (L)Comment: Spec sent to 21 - 32 mmol/L [facility] Lab MAIN-STATION 1 Chloride POC 106 98 - 107 mmol/L [facility] MAIN-STATION 1 Potassium POC 3.8 3.50 - 5.10 mmol/L [facility] MAIN-STATION 1 Sodium POC 140 136 - 145 mmol/L [facility] MAIN-STATION 1 Glucose POC 135 (H) 74 - 106 mg/dL [facility] MAIN-STATION 1 Urea Nitrogen 7 7 - 18 mg/dL [facility] POC MAIN-STATION 1 Creatinine POC 0.5 (L) 0.6 - 1.3 mg/dL [facility] MAIN-STATION 1 Calcium Ionized 0.79 (L) 1.15 - 1.29 mmol/L [facility] POC MAIN-STATION 1 Hemoglobin POC 12.9 12.0 - 16.0 g/dL [facility] MAIN-STATION 1 Hematocrit POC 38.0 37.0 - 47.0 % [facility] MAIN-STATION 1 GFR, Estimated >60 mL/min/1.73 m2 [facility] MAIN-STATION 1 GFR, Estim, >60 mL/min/1.73 m2 [facility] Afr-Am MAIN-STATION 1 Performing Organization Address City/State/Zipcode Phone Number [facility] MAIN-STATION 1 after 03/18/2017 Insurance Type Payer Benefit Subscriber ID Effective Phone Address Plan / Dates Group [facility] xxxxxxxxx 2013-P [phone] [facility] [id number] [facility] [address]
--- OUTSIDE RECORDS SUMMARY | 2018-04-25 00:16 | XMS REPORT | Clinical Summary ---
Author Author [facility] Organization [facility] Address Unknown Phone Unavailable Care Team Providers Care Warehouse Driver Name Role Phone PCP Unavailable Allergies No Known Allergies Current Medications Prescription Sig. Disp. Refills Start End Date Status Date lisinopril (ZESTRIL) 2.5 Take 1 tablet by mouth 90 tablet 3 07/03/19 Active mg tabletIndications: daily. 15 Diabetes mellitus buPROPion (WELLBUTRIN XL) Take 1 tablet by mouth 30 tablet 3 07/03/19 Active 300 mg extended release every morning. 15 tabletIndications: Depression, BMI 40.0-44.9, adult, Sleep difficulties, Anxiety state, unspecified traZODone (DESYREL) 100 Take 2 tablets by mouth 180 tablet 0 20 Active mg tabletIndications: at bedtime nightly. 15 Sleep difficulties, INSOMNIA DISORDER metFORMIN (GLUCOPHAGE) Take 2 tablets by mouth 2 90 tablet 0 06/29/19 Active 500 mg tabletIndications: times daily (with meals). 17 Diabetes mellitus due to underlying condition with diabetic nephropathy, without long-term current use of insulin gabapentin (NEURONTIN) Take one tablet before 90 capsule 0 06/29/19 Active 300 mg bedtime. 17 capsuleIndications: Diabetes mellitus due to underlying condition with diabetic nephropathy, without long-term current use of insulin glipiZIDE (GLUCOTROL) 5 Take 1 tablet by mouth 30 tablet 0 20 Active mg tabletIndications: daily. 17 Diabetes mellitus due to underlying condition with diabetic nephropathy, without long-term current use of insulin Active Problems Problem Noted Date Obesity (BMI 30-39.9) 06/28/2016 Exercise counseling 06/28/2016 Dietary counseling 06/28/2016 Homeless 06/12/2016 PTSD (post-traumatic stress disorder) 07/09/2014 MDD (major depressive disorder) 07/09/2014 Polysubstance dependence in early, early partial, sustained full, or 07/09/2014 sustained partial remission Anxiety state, unspecified 07/02/2014 Diabetes mellitus 02/10/2014 BMI 40.0-44.9, adult 02/10/2014 Hyperlipidemia LDL goal < 100 02/10/2014 Sleep difficulties 02/10/2014 Back pain 09/02/2010 Encounters Date Type Specialty Care Team Description 07/27/2017 Emergency Emergency Medicine after 07/26/2016 Immunizations Name Dates Previously Given Next Due [...] know Sister Alive Son Alive Social History Tobacco Use Types Packs/Day Years Used Date Former Smoker 0.1 Smokeless Tobacco: Never Used Tobacco Cessation: Counseling Given: No Comments: once in a while Alcohol Use Drinks/Week oz/Week Comments Yes 1 Glasses of 0.5 occasionnaly wine Sex Assigned at Date Recorded Not on file Last Filed Vital Signs Vital Sign Reading Time Taken Blood Pressure 137/112 07/27/2017 7:00 PM CDT Pulse 99 07/27/2017 7:00 PM CDT Temperature 37.9 C (100.2 F) 07/27/2017 7:00 PM CDT Respiratory Rate 20 07/27/2017 6:41 PM CDT Oxygen Saturation 93% 07/27/2017 7:00 PM CDT Inhaled Oxygen - - Concentration Weight - - Height - - Body Mass Index - - Plan of Treatment Health Maintenance Due Date Last Done Comments CERVICAL CANCER SCRN (3 2006 YRS) DM RETINAL EXAM (YEARLY) 03/21/2015 03/21/2014 DM HGBA1C (YEARLY) 07/10/2015 07/09/2014, 02/10/2014 DM FOOT EXAM (YEARLY) 06/28/2017 06/28/2016 DM MICROALBUMIN URINE 06/28/2017 06/28/2016, 06/28/2016, 06/28/2016, SCRN (YEARLY) Additional history exists Results * VBG POC (07/27/2017 7:23 PM) Component Value Ref Range pH, Carol POC 7.63 (H)Comment: Spec sent to Lab 7.33 - 7.43 pCO2, Carol POC 16.7 (L) 38.0 - 50.0 mm Hg pO2, Carol POC 128 (H) 50 - 75 mm Hg Base Deficit, Carol POC 1 HCO3, Carol POC 17.3 (L) 22.0 - 26.0 mmol/L % Sat, Carol POC 100 (H) 60 - 85 % Lactic Acid, Carol POC 1.10 0.4 - 2.0 mmol/L TCO2, CAROL POC 18 (L) 21 - 32 mmol/L Specimen Performing Laboratory MISYS * BMP POC (07/27/2017 7:23 PM) Component Value Ref Range CO2 POC 19 (L)Comment: Spec sent to Lab 21 - 32 mmol/L Chloride POC 106 98 - 107 mmol/L Potassium POC 3.8 3.50 - 5.10 mmol/L Sodium POC 140 136 - 145 mmol/L Glucose POC 135 (H) 74 - 106 mg/dL Urea Nitrogen POC 7 7 - 18 mg/dL Creatinine POC 0.5 (L) 0.6 - 1.3 mg/dL Calcium Ionized POC 0.79 (L) 1.15 - 1.29 mmol/L Hemoglobin POC 12.9 12.0 - 16.0 g/dL Hematocrit POC 38.0 37.0 - 47.0 % GFR, Estimated >60 mL/min/1.73 m2 GFR, Estim, Afr-Am >60 mL/min/1.73 m2 Specimen Performing Laboratory MISYS after 07/26/2016
--- OUTSIDE RECORDS SUMMARY | 2018-04-25 00:16 | XMS REPORT | Summary of Care ---
Author Author [facility] Organization [facility] Address Unknown Phone Unavailable Encounter RAMIRO Flores(SIMONA) [id number] Date(s): 06/26/15 - 06/29/15 [facility] [address] [place] [address]- [phone] Discharge Disposition: Home Attending Physician: Gabrielle Bravo MD Admitting Physician: Gabrielle Bravo MD Vital Signs 1 2 3 Most recent to oldest [Reference Range]: 170.18 cm (06/26/15 9:51 PM) Height 98.1 DegF (06/29/15 4:20 PM) 99.6 DegF *HI* (06/29/15 11:49 AM) 99.1 DegF (06/29/15 8:25 AM) Temperature Oral [96.4-99.1 DegF] 133/90 mmHg (06/29/15 4:20 PM) 138/88 mmHg (06/29/15 11:49 AM) 142/86 mmHg *HI* (06/29/15 8:25 AM) Blood Pressure [90-140/60-90 mmHg] 18 BRMIN (06/29/15 4:20 PM) 18 BRMIN (06/29/15 11:49 AM) 18 BRMIN (06/29/15 8:25 AM) Respiratory Rate [14-20 BRMIN] 100 bpm (06/29/15 4:20 PM) 105 bpm *HI* (06/29/15 11:49 AM) 102 bpm *HI* (06/29/15 8:25 AM) Peripheral Pulse Rate [60-100 bpm] 113.636 kg (06/26/15 9:51 PM) Weight 39.24 m2 (06/26/15 9:51 PM) Body Mass Index Problem List Condition Effective Dates Status Health Status Informant Diabetes(Confirmed) Resolved Hypokalemia(Confirme Resolved d) Allergies, Adverse Reactions, Alerts Substance Reaction Severity Status NKDA Active Medications acetaminophen 650 mg, 2 tab, Route: PO, Drug form: TAB, Q4H, Dosing Weight 113.636, kg, PRN Pa in Score 4-6, Start date: 06/27/15 7:59:00 CDT, Stop date: 07/27/15 7:58:00 CDT Notes: Do not exceed 4 gm/day. (Same as: Tylenol) Start Date: 06/27/15 Stop Date: 06/29/15 Status: Discontinued acetaminophen (ANES) (ANES) Route: IV, Drug form: INJ, Start date: 06/28/15 13:05:00 CDT, Stop date: 6 14:05:00 CDT Start Date: 06/28/15 Stop Date: 06/28/15 Status: Completed acetaminophen-codeine #3 2 tab, Route: PO, Drug Form: TAB, Dosing Weight 113.636, kg, Q4H, PRN Pain Score 4-6, Start date: 06/28/15 13:48:00 CDT, Duration: 30 day, Stop date: 07/28/15 1 3:47:00 CDT Notes: Do not exceed 4gm/day of acetaminophen. (Same as: Tylenol with Codeine # 3) Start Date: 06/28/15 Stop Date: 06/29/15 Status: Discontinued acetaminophen-codeine #3 1 tab, Route: PO, Drug Form: TAB, Dosing Weight 113.636, kg, Q4H, PRN Pain Score 4-6, Start date: 06/28/15 13:48:00 CDT, Duration: 30 day, Stop date: 07/28/15 1 3:47:00 CDT Notes: Do not exceed 4gm/day of acetaminophen. (Same as: Tylenol with Codeine # 3) Start Date: 06/28/15 Stop Date: 06/29/15 Status: Discontinued Dextrose 50% Syringe 25 gm, 50 mL, Route: IVP, Drug Form: INJ, Dosing Weight 113.636, kg, PRN, PRN Bl ood Glucose Results, Start date: 06/27/15 20:01:00 CDT, Duration: 30 day, Stop d ate: 07/27/15 20:00:00 CDT Start Date: 06/27/15 Stop Date: 06/29/15 Status: Discontinued Dextrose 50% Syringe 12.5 gm, 25 mL, Route: IVP, Drug Form: INJ, Dosing Weight 113.636, kg, PRN, PRN Blood Glucose Results, Start date: 06/27/15 20:01:00 CDT, Duration: 30 day, Stop date: 07/27/15 20:00:00 CDT Start Date: 06/27/15 Stop Date: 06/29/15 Status: Discontinued fentaNYL 100 microgram, 2 mL, Route: IV, Drug form: INJ, ONCE, Dosing Weight 113.636, kg, PRN Pain Score 6-10, Priority: NOW, Start date: 06/28/15 7:51:00 CDT, Stop date: 06/28/15 7:51:00 CDT Notes: (Same as: Sublimaze) Preservative free. Start Date: 06/28/15 Stop Date: 06/28/15 Status: Completed fentaNYL 50 microgram, 1 mL, Route: IV, Drug form: INJ, ONCE, Dosing Weight 113.636, kg, Start date: 06/28/15 11:56:00 CDT, Stop date: 06/28/15 11:56:00 CDT Notes: (Same as: Sublimaze) Preservative free. Start Date: 06/28/15 Stop Date: 06/28/15 Status: Completed fentaNYL 50 microgram, 1 mL, Route: IV, Drug form: INJ, ONCE, Dosing Weight 113.636, kg, Start date: 06/28/15 8:16:00 CDT, Stop date: 06/28/15 8:16:00 CDT Notes: (Same as: Sublimaze) Preservative free. Start Date: 06/28/15 Stop Date: 06/28/15 Status: Completed fentaNYL 50 microgram, Route: IV, ONCE, Dosing Weight 113.636, kg, Start date: 06/28/15 8 :16:00 CDT, Stop date: 06/28/15 8:16:00 CDT Start Date: 06/28/15 Stop Date: 06/28/15 Status: Completed fentaNYL (ANES) Route: IV, Drug form: INJ, ONCE, Stop date: 06/28/15 13:56:00 CDT Start Date: 06/28/15 Stop Date: 06/28/15 Status: Completed gabapentin PO, BID, 0 Refill(s) Start Date: 06/27/15 Status: Ordered glipiZIDE PO, Daily, 0 Refill(s) Start Date: 06/27/15 Status: Ordered glucagon 1 mg, Route: IM, Drug form: PDR/INJ, PRN, Dosing Weight 113.636, kg, PRN Blood G lucose Results, Start date: 06/27/15 20:01:00 CDT, Duration: 30 day, Stop date: 07/27/15 20:00:00 CDT Start Date: 06/27/15 Stop Date: 06/29/15 Status: Discontinued glycopyrrolate (ANES) Route: IV, Drug form: INJ, ONCE, Stop date: 06/28/15 14:10:00 CDT Start Date: 06/28/15 Stop Date: 06/28/15 Status: Completed ibuprofen 400 mg, PO, Q6H, PRN Pain Score 4-6, 0 Refill(s) Start Date: 06/27/15 Status: Ordered ibuprofen 400 mg oral tablet 400 mg, 1 tab, Route: PO, Drug form: TAB, ONCE, Dosing Weight 113.636, kg, Prior ity: NOW, Start date: 06/27/15 22:06:00 CDT, Stop date: 06/27/15 22:06:00 CDT Notes: (Same as: Raheem)"Do Not Crush" Give with food. Start Date: 06/27/15 Stop Date: 06/27/15 Status: Completed insulin aspart 5 unit, 0.05 mL, Route: SUB-Q, Drug form: SOLN, TID-Before Meals, Dosing Weight 113.636, kg, PRN Blood Glucose Results, Start date: 06/27/15 20:01:00 CDT, Durat ion: 30 day, Stop date: 07/27/15 20:00:00 CDT Notes: Roll in palms of hands gently; Do not shake vigorously. (Same as: NovoLO G)"single patient use only"WASTE: F/P - Black; E - Municipal Trash Bin Stable f or 28 days at room temperature.Expires in days from Date Start Date: 06/27/15 Stop Date: 06/29/15 Status: Discontinued insulin aspart 3 unit, 0.03 mL, Route: SUB-Q, Drug form: SOLN, Bedtime, Dosing Weight 113.636, kg, PRN Blood Glucose Results, Start date: 06/27/15 20:01:00 CDT, Duration: 30 d ay, Stop date: 07/27/15 20:00:00 CDT Notes: Roll in palms of hands gently; Do not shake vigorously. (Same as: Stevenson Garcia)"single patient use only"WASTE: F/P - Black; E - Municipal Trash Bin Stable f or 28 days at room temperature.Expires in days from Date Start Date: 06/27/15 Stop Date: 06/29/15 Status: Discontinued insulin aspart 1 unit, 0.01 mL, Route: SUB-Q, Drug form: SOLN, Bedtime, Dosing Weight 113.636, kg, PRN Blood Glucose Results, Start date: 06/27/15 20:01:00 CDT, Duration: 30 d ay, Stop date: 07/27/15 20:00:00 CDT Notes: Roll in palms of hands gently; Do not shake vigorously. (Same as: Stevenson Garcia)"single patient use only"WASTE: F/P - Black; E - Municipal Trash Bin Stable f or 28 days at room temperature.Expires in days from Date Start Date: 06/27/15 Stop Date: 06/29/15 Status: Discontinued insulin aspart 2 unit, 0.02 mL, Route: SUB-Q, Drug form: SOLN, Bedtime, Dosing Weight 113.636, kg, PRN Blood Glucose Results, Start date: 06/27/15 20:01:00 CDT, Duration: 30 d ay, Stop date: 07/27/15 20:00:00 CDT Notes: Roll in palms of hands gently; Do not shake vigorously. (Same as: Stevenson Garcia)"single patient use only"WASTE: F/P - Black; E - Municipal Trash Bin Stable f or 28 days at room temperature.Expires in days from Date Start Date: 06/27/15 Stop Date: 06/29/15 Status: Discontinued insulin aspart 4 unit, 0.04 mL, Route: SUB-Q, Drug form: SOLN, TID-Before Meals, Dosing Weight 113.636, kg, PRN Blood Glucose Results, Start date: 06/27/15 20:01:00 CDT, Durat ion: 30 day, Stop date: 07/27/15 20:00:00 CDT Notes: Roll in palms of hands gently; Do not shake vigorously. (Same as: Stevenson Garcia)"single patient use only"WASTE: F/P - Black; E - Municipal Trash Bin Stable f or 28 days at room temperature.Expires in days from Date Start Date: 06/27/15 Stop Date: 06/29/15 Status: Discontinued insulin aspart 3 unit, 0.03 mL, Route: SUB-Q, Drug form: SOLN, TID-Before Meals, Dosing Weight 113.636, kg, PRN Blood Glucose Results, Start date: 06/27/15 20:01:00 CDT, Durat ion: 30 day, Stop date: 07/27/15 20:00:00 CDT Notes: Roll in palms of hands gently; Do not shake vigorously. (Same as: Stevenson Garcia)"single patient use only"WASTE: F/P - Black; E - Municipal Trash Bin Stable f or 28 days at room temperature.Expires in days from Date Start Date: 06/27/15 Stop Date: 06/29/15 Status: Discontinued insulin aspart 1 unit, 0.01 mL, Route: SUB-Q, Drug form: SOLN, TID-Before Meals, Dosing Weight 113.636, kg, PRN Blood Glucose Results, Start date: 06/27/15 20:01:00 CDT, Durat ion: 30 day, Stop date: 07/27/15 20:00:00 CDT Notes: Roll in palms of hands gently; Do not shake vigorously. (Same as: Stevenson Garcia)"single patient use only"WASTE: F/P - Black; E - Municipal Trash Bin Stable f or 28 days at room temperature.Expires in days from Date Start Date: 06/27/15 Stop Date: 06/29/15 Status: Discontinued insulin aspart 2 unit, 0.02 mL, Route: SUB-Q, Drug form: SOLN, TID-Before Meals, Dosing Weight 113.636, kg, PRN Blood Glucose Results, Start date: 06/27/15 20:01:00 CDT, Durat ion: 30 day, Stop date: 07/27/15 20:00:00 CDT Notes: Roll in palms of hands gently; Do not shake vigorously. (Same as: Stevenson Garcia)"single patient use only"WASTE: F/P - Black; E - Municipal Trash Bin Stable f or 28 days at room temperature.Expires in days from Date Start Date: 06/27/15 Stop Date: 06/29/15 Status: Discontinued insulin aspart 4 unit, 0.04 mL, Route: SUB-Q, Drug form: SOLN, Bedtime, Dosing Weight 113.636, kg, PRN Blood Glucose Results, Start date: 06/27/15 20:01:00 CDT, Duration: 30 d ay, Stop date: 07/27/15 20:00:00 CDT Notes: Roll in palms of hands gently; Do not shake vigorously. (Same as: Stevenson Garcia)"single patient use only"WASTE: F/P - Black; E - Municipal Trash Bin Stable f or 28 days at room temperature.Expires in days from Date Start Date: 06/27/15 Stop Date: 06/29/15 Status: Discontinued Insulin regular 10 unit, 0.1 mL, Route: IVP, Drug form: INJ, ONCE, Dosing Weight 113.636, kg, Pr iority: STAT, Start date: 06/27/15 0:32:00 CDT, Stop date: 06/27/15 0:32:00 CDT Notes: (Same as: Humulin R and NovoLIN R)WASTE: F/P - Black; E - Municipal Trash Bin (Do not shake) Start Date: 06/27/15 Stop Date: 06/27/15 Status: Completed Insulin regular 5 unit, Route: IV, ONCE, Dosing Weight 113.636, kg, Start date: 06/28/15 8:42:00 CDT, Stop date: 06/28/15 8:42:00 CDT Start Date: 06/28/15 Stop Date: 06/28/15 Status: Completed Insulin regular 10 unit, Route: IV, ONCE, Dosing Weight 113.636, kg, Start date: 06/28/15 8:16:0 0 CDT, Stop date: 06/28/15 8:16:00 CDT Start Date: 06/28/15 Stop Date: 06/28/15 Status: Completed Lactated Ringers Injection IV (ANES) (ANES) Route: IV, Total Volume: 1,000, Start date: 06/28/15 12:30:00 CDT, Stop date: 13:30:00 CDT Start Date: 06/28/15 Stop Date: 06/28/15 Status: Completed Lactated Ringers Injection IV 1,000 mL 1,000 mL, Rate: 25 ml/hr, Infuse over: 40 hr, Route: IV, Dosing Weight 113.636 k g, Total Volume: 1,000, Start date: 06/28/15 9:45:00 CDT, Duration: 1 day, Stop date: 06/29/15 9:44:00 CDT Start Date: 06/28/15 Stop Date: 06/28/15 Status: Discontinued lidocaine (ANES) Route: IV, Drug form: INJ, ONCE, Stop date: 06/28/15 13:56:00 CDT Start Date: 06/28/15 Stop Date: 06/28/15 Status: Completed magnesium sulfate 2gm / NS 50ml (premixed) 2 gm, 50 mL, Route: IVPB, Drug form: INJ, ONCE, Dosing Weight 113.636, kg, Start date: 06/28/15 6:32:00 CDT, Duration: 2 hr, Stop date: 06/28/15 6:32:00 CDT Notes: WASTE: F/P - Sink; E - Municipal Trash Bin Start Date: 06/28/15 Stop Date: 06/28/15 Status: Completed metFORMIN 1,000 mg, PO, BID, 0 Refill(s) Start Date: 06/27/15 Status: Ordered morphine Sulfate 4 mg, 2 mL, Route: IVP, Drug form: INJ, ONCE, Dosing Weight 113.636, kg, Priorit y: STAT, Start date: 06/26/15 22:40:00 CDT, Stop date: 06/26/15 22:40:00 CDT Notes: (Same as:MORPhine Sulfate) Start Date: 06/26/15 Stop Date: 06/26/15 Status: Completed morphine Sulfate 4 mg, 2 mL, Route: IVP, Drug form: INJ, Q4H, Dosing Weight 113.636, kg, PRN Pain Score 7-10, Start date: 06/27/15 7:59:00 CDT, Duration: 30 day, Stop date: 06/28 03/13 7:58:00 CDT Notes: (Same as:MORPhine Sulfate) Start Date: 06/27/15 Stop Date: 06/29/15 Status: Discontinued neostigmine (ANES) Route: IV, Drug form: INJ, ONCE, Stop date: 06/28/15 14:10:00 CDT Start Date: 06/28/15 Stop Date: 06/28/15 Status: Completed NS (Bolus) IV 1,000 mL, 1,000 ml/hr, Infuse Over: 1 hr, Route: IV, ONCE, Priority: STAT, Dosin g Weight 113.636 kg, Start date: 06/27/15 0:32:00 CDT, Duration: 1 doses or time s, Stop date: 06/27/15 0:32:00 CDT Start Date: 06/27/15 Stop Date: 06/27/15 Status: Completed ondansetron 4 mg, 2 mL, Route: IVP, Drug form: INJ, ONCE, Dosing Weight 113.636, kg, Priorit y: STAT, Start date: 06/26/15 22:40:00 CDT, Stop date: 06/26/15 22:40:00 CDT Notes: (Same as: Zofran) MEDICATION WASTE Product Size: 4 mgProduct Was jose alfredo: ___ mg Start Date: 06/26/15 Stop Date: 06/26/15 Status: Completed ondansetron 4 mg, 2 mL, Route: IVP, Drug form: INJ, Q6H, Dosing Weight 113.636, kg, PRN Naus ea & Vomiting, Start date: 06/27/15 7:59:00 CDT, Duration: 30 day, Stop date: 07/27/15 7:58:00 CDT Notes: (Same as: Zofran) MEDICATION WASTE Product Size: 4 mgProduct Was jose alfredo: ___ mg Start Date: 06/27/15 Stop Date: 06/29/15 Status: Discontinued ondansetron (ANES) Route: IV, Drug form: INJ, ONCE, Stop date: 06/28/15 14:10:00 CDT Start Date: 06/28/15 Stop Date: 06/28/15 Status: Completed potassium chloride 40 mEq, 2 tab, Route: PO, Drug form: ERTAB, ONCE, Dosing Weight 113.636, kg, Sandra ority: STAT, Start date: 06/27/15 0:06:00 CDT, Stop date: 06/27/15 0:06:00 CDT Notes: (Same as: K-Dur 20)"Do Not Crush" With food and full glass of water Start Date: 06/27/15 Stop Date: 06/27/15 Status: Completed potassium chloride 40 mEq, 400 mL, Route: IV, Drug form: INJ, ONCE, Dosing Weight 113.636, kg, Star t date: 06/28/15 6:30:00 CDT, Stop date: 06/28/15 6:30:00 CDT Notes: Infuse at a rate of 10 mEq/hr.(Same as: KCL) Start Date: 06/28/15 Stop Date: 06/28/15 Status: Completed potassium chloride 40 mEq, 2 tab, Route: PO, Drug form: ERTAB, ONCE, Dosing Weight 113.636, kg, Sta rt date: 06/29/15 17:37:00 CDT, Stop date: 06/29/15 17:37:00 CDT Notes: (Same as: K-Dur 20)"Do Not Crush" With food and full glass of water Start Date: 06/29/15 Stop Date: 06/29/15 Status: Completed potassium chloride 10 mEq, 100 mL, Route: IVPB, Drug form: INJ, Q1H, Dosing Weight 113.636, kg, Sta rt date: 06/28/15 10:00:00 CDT, Duration: 3 doses or times, Stop date: 06/28/15 12:00:00 CDT Notes: Infuse at a rate of 10 mEq/hr.(Same as: KCL) Start Date: 06/28/15 Stop Date: 06/28/15 Status: Completed potassium chloride 40 mEq, 2 tab, Route: PO, Drug form: ERTAB, ONCE, Dosing Weight 113.636, kg, Sta rt date: 06/28/15 6:29:00 CDT, Stop date: 06/28/15 6:29:00 CDT Notes: (Same as: K-Dur 20)"Do Not Crush" With food and full glass of water Start Date: 06/28/15 Stop Date: 06/28/15 Status: Completed propofol (ANES) Route: IV, Drug form: INJ, ONCE, Stop date: 06/28/15 13:56:00 CDT Start Date: 06/28/15 Stop Date: 06/28/15 Status: Completed rocuronium (ANES) Route: IV, Drug form: INJ, ONCE, Stop date: 06/28/15 13:56:00 CDT Start Date: 06/28/15 Stop Date: 06/28/15 Status: Completed Saline Flush 0.9% 10 ml, Route: IVP, Drug Form: INJ, Dosing Weight 113.636, kg, PRN, PRN Line Flus h, Start date: 06/27/15 7:59:00 CDT, Duration: 30 day, Stop date: 07/27/15 7:58: 00 CDT Notes: (Same as: BD Posiflush) Start Date: 06/27/15 Stop Date: 06/29/15 Status: Discontinued Sodium Chloride 0.9% (Bolus) IV 1,000 mL, 1,000 ml/hr, Infuse Over: 1 hr, Route: IV, 1,000, Drug form: INJ, ONCE , Priority: STAT, Dosing Weight 113.636 kg, Start date: 06/26/15 22:40:00 CDT, D uration: 1 doses or times, Stop date: 06/26/15 22:40:00 CDT Start Date: 06/26/15 Stop Date: 06/26/15 Status: Completed Sodium Chloride 0.9% IV (ANES) (ANES) Route: IV, Total Volume: 1,000, Start date: 06/28/15 12:37:00 CDT, Stop date: 13:37:00 CDT Start Date: 06/28/15 Stop Date: 06/28/15 Status: Completed Sodium Chloride 0.9% IV (ANES) (ANES) + cefOXitin (ANES) (ANES) Route: IV, Drug form: INJ, Start date: 06/28/15 12:50:00 CDT, Stop date: 6 13:50:00 CDT Start Date: 06/28/15 Stop Date: 06/28/15 Status: Completed Sodium Chloride 0.9% IV 1,000 mL 1,000 mL, Rate: 125 ml/hr, Infuse over: 8 hr, Route: IV, Dosing Weight 113.636 k g, Total Volume: 1,000, Start date: 06/27/15 7:59:00 CDT, Duration: 30 day, Stop date: 07/27/15 7:58:00 CDT Start Date: 06/27/15 Stop Date: 06/29/15 Status: Discontinued succinylcholine (ANES) Route: IV, Drug form: INJ, ONCE, Stop date: 06/28/15 13:56:00 CDT Start Date: 06/28/15 Stop Date: 06/28/15 Status: Completed Tylenol 975 mg, Route: PO, Drug form: TAB, ONCE, Dosing Weight 113.636, kg, Priority: ST AT, Start date: 06/27/15 0:00:00 CDT, Stop date: 06/27/15 0:00:00 CDT Start Date: 06/27/15 Stop Date: 06/27/15 Status: Completed Tylenol with Codeine #3 oral tablet 1 - 2 tab, PO, Q4H, PRN Pain, X 3 day, # 20 tab, 0 Refill(s) Start Date: 06/29/15 Stop Date: 07/02/15 Status: Ordered Zosyn + Sodium Chloride 0.9% IV 100 mL 3.375 gm, Route: IVPB, ABXQ8H, Dosing Weight 113.636, kg, Start date: 06/27/15 1 6:00:00 CDT, Duration: 30 day, Stop date: 07/27/15 8:00:00 CDT Notes: (Same as: Zosyn)Dosing based on Piperacillin component MEDICATION WA SHREYAS Product Size: 3375 mgProduct Wasted: ___ mg Start Date: 06/27/15 Stop Date: 06/29/15 Status: Discontinued Zosyn + Sodium Chloride 0.9% IV 100 mL 3.375 gm, Route: IVPB, ONCE, Dosing Weight 113.636, kg, Priority: STAT, Start da te: 06/27/15 3:08:00 CDT, Stop date: 06/27/15 3:08:00 CDT Notes: (Same as: Zosyn)Dosing based on Piperacillin component MEDICATION WA SHREYAS Product Size: 3375 mgProduct Wasted: ___ mg Start Date: 06/27/15 Stop Date: 06/27/15 Status: Completed Results ELECTROLYTES 1 2 3 Most recent to oldest [Reference Range]: 136 mEq/L (06/28/15 4:05 AM) 134 mEq/L *LOW* (06/26/15 11:01 PM) Sodium Lvl [135-145 mEq/L] 3.3 mEq/L *LOW* (06/29/15 12:01 PM) 2.5 mEq/L 1 *CRIT* (06/28/15 4:05 AM) 3.1 mEq/L *LOW* (06/26/15 11:01 PM) Potassium Lvl [3.5-5.1 mEq/L] 101 mEq/L (06/28/15 4:05 AM) 98 mEq/L (06/26/15 11:01 PM) Chloride Lvl [95-109 mEq/L] 25 mEq/L (06/28/15 4:05 AM) 23 mEq/L *LOW* (06/26/15 11:01 PM) CO2 [24-32 mEq/L] 12.5 mEq/L (06/28/15 4:05 AM) 16.1 mEq/L (06/26/15 11:01 PM) AGAP [10.0-20.0 mEq/L] 1Result Comment: Critical Result(s) called to marsha martin at 06/28/2015 05:13 by lgb. Read back OK. CHEM PANEL 1 2 3 Most recent to oldest [Reference Range]: 0.42 mg/dL *LOW* (06/28/15 4:05 AM) 0.88 mg/dL (06/26/15 11:01 PM) Creatinine Lvl [0.50-1.40 mg/dL] 138 mL/min/1.73m2 1 *NA* (06/28/15 4:05 AM) 89 mL/min/1.73m2 2 *NA* (06/26/15 11:01 PM) eGFR 6 mg/dL *LOW* (06/28/15 4:05 AM) 15 mg/dL (06/26/15 11:01 PM) BUN [7-22 mg/dL] 14 (06/28/15 4:05 AM) 17 (06/26/15 11:01 PM) B/C Ratio [6-25] 219 mg/dL *HI* (06/28/15 4:05 AM) 384 mg/dL *HI* (06/26/15 11:01 PM) Glucose Lvl [70-99 mg/dL] 5.4 g/dL *LOW* (06/28/15 4:05 AM) 7.8 g/dL (06/26/15 11:01 PM) Total Protein [6.4-8.4 g/dL] 2.5 g/dL *LOW* (06/28/15 4:05 AM) 3.5 g/dL (06/26/15 11:01 PM) Albumin Lvl [3.5-5.0 g/dL] 2.9 g/dL (06/28/15 4:05 AM) 4.3 g/dL *HI* (06/26/15 11:01 PM) Globulin [2.0-4.0 g/dL] 0.9 (06/28/15 4:05 AM) 0.8 (06/26/15 11:01 PM) A/G Ratio [0.7-1.6] 7.5 mg/dL *LOW* (06/28/15 4:05 AM) 8.7 mg/dL (06/26/15 11:01 PM) Calcium Lvl [8.5-10.5 mg/dL] 1.9 mg/dL (06/29/15 12:01 PM) 1.7 mg/dL *LOW* (06/28/15 4:05 AM) Magnesium Lvl [1.8-2.4 mg/dL] 306 unit/L *HI* (06/28/15 4:05 AM) 401 unit/L *HI* (06/26/15 11:01 PM) ALT [0-65 unit/L] 189 unit/L *HI* (06/28/15 4:05 AM) 1262 unit/L *HI* (06/26/15 11:01 PM) AST [0-37 unit/L] 115 unit/L (06/28/15 4:05 AM) 174 unit/L *HI* (06/26/15 11:01 PM) Alk Phos [39-136 unit/L] 4.5 mg/dL *HI* (06/28/15 4:05 AM) 2.1 mg/dL *HI* (06/26/15 11:01 PM) Bili Total [0.2-1.3 mg/dL] 87 unit/L (06/26/15 11:01 PM) Lipase Lvl [73-393 unit/L] 1.9 mMol/L (06/26/15 11:01 PM) Lactic Acid Lvl [0.5-2.2 mMol/L] 1Result Comment: The eGFR is calculated using the [...] from the National Kid[employer] Education Program ( NKDEP) which additionally recommends that when the eGFR is used in patients with extremes of body mass index for purposes of drug dosing, the eGFR should be mul tiplied by the estimated BMI. 2Result Comment: The eGFR is calculated using the [...] from the National Kid[employer] Education Program ( NKDEP) which additionally recommends that when the eGFR is used in patients with extremes of body mass index for purposes of drug dosing, the eGFR should be mul tiplied by the estimated BMI. URINE CHEM 1 2 3 Most recent to oldest [Reference Range]: Negative (06/27/15 1:00 AM) U Preg [Negative] URINE AND STOOL 1 2 3 Most recent to oldest [Reference Range]: Marked *ABN* (06/27/15 1:00 AM) UA Turbidity [Clear] Yellow *NA* (06/27/15 1:00 AM) UA Color [Yellow] 6.0 (06/27/15 1:00 AM) UA pH [5.0-8.0] 1.029 (06/27/15 1:00 AM) UA Spec Grav [<=1.030] 500 mg/dL *ABN* (06/27/15 1:00 AM) UA Glucose [Negative mg/dL] Large *ABN* (06/27/15 1:00 AM) UA Blood [Negative] 80 mg/dL *ABN* (06/27/15 1:00 AM) UA Ketones [Negative mg/dL] 30 mg/dL *ABN* (06/27/15 1:00 AM) UA Protein [Negative mg/dL] <=1.0 mg/dL *NA* (06/27/15 1:00 AM) UA Urobilinogen [0.1-1.0 mg/dL] Negative *NA* (06/27/15 1:00 AM) UA Bili [Negative] Moderate *ABN* (06/27/15 1:00 AM) UA Leuk Est [Negative] Negative (06/27/15 1:00 AM) UA Nitrite [Negative] >182 /HPF *HI* (06/27/15 1:00 AM) UA WBC [0-5 /HPF] >182 /HPF *HI* (06/27/15 1:00 AM) UA RBC [0-2 /HPF] Occasional /HPF *NA* (06/27/15 1:00 AM) UA Bacteria [None Seen /HPF] Few /LPF *NA* (06/27/15 1:00 AM) UA Sq Epi [Few /LPF] IMMUNOLOGY 1 2 3 Most recent to oldest [Reference Range]: Negative *NA* (06/27/15 9:33 AM) Hep Bs Ag [Negative] Negative *NA* (06/27/15 9:33 AM) Hep B Core IgM [Negative] Negative *NA* (06/27/15 9:33 AM) Hep A IgM [Negative] Negative *NA* (06/27/15 9:33 AM) Hep C Ab HEMATOLOGY 1 2 3 Most recent to oldest [Reference Range]: 7.5 K/CMM (06/28/15 4:05 AM) 6.9 K/CMM (06/26/15 11:01 PM) WBC [3.7-10.4 K/CMM] 4.47 M/CMM (06/28/15 4:05 AM) 5.24 M/CMM (06/26/15 11:01 PM) RBC [4.20-5.40 M/CMM] 12.8 g/dL (06/28/15 4:05 AM) 14.8 g/dL (06/26/15 11:01 PM) Hgb [12.0-16.0 g/dL] 38.1 % (06/28/15 4:05 AM) 44.5 % (06/26/15 11:01 PM) Hct [36.0-48.0 %] 85.3 fL (06/28/15 4:05 AM) 84.9 fL (06/26/15 11:01 PM) MCV [80.0-98.0 fL] 28.7 pg (06/28/15 4:05 AM) 28.2 pg (06/26/15 11:01 PM) MCH [27.0-31.0 pg] 33.7 g/dL (06/28/15 4:05 AM) 33.2 g/dL (06/26/15 11:01 PM) MCHC [32.0-36.0 g/dL] 13.2 % (06/28/15 4:05 AM) 13.2 % (06/26/15 11:01 PM) RDW [11.5-14.5 %] 246 K/CMM (06/28/15 4:05 AM) 352 K/CMM (06/26/15 11:01 PM) Platelet [133-450 K/CMM] 8.0 fL (06/28/15 4:05 AM) 7.6 fL (06/26/15 11:01 PM) MPV [7.4-10.4 fL] 91.2 % *HI* (06/28/15 4:05 AM) 96.1 % *HI* (06/26/15 11:01 PM) Segs [45.0-75.0 %] 5.0 % *LOW* (06/28/15 4:05 AM) 2.0 % *LOW* (06/26/15 11:01 PM) Lymphocytes [20.0-40.0 %] 3.4 % (06/28/15 4:05 AM) 1.6 % *LOW* (06/26/15 11:01 PM) Monocytes [2.0-12.0 %] 0.1 % (06/28/15 4:05 AM) 0.2 % (06/26/15 11:01 PM) Eosinophils [0.0-4.0 %] 0.3 % (06/28/15 4:05 AM) 0.1 % (06/26/15 11:01 PM) Basophils [0.0-1.0 %] 6.8 K/CMM (06/28/15 4:05 AM) 6.6 K/CMM (06/26/15 11:01 PM) Segs-Bands # [1.5-8.1 K/CMM] 0.4 K/CMM *LOW* (5/2/16 4:05 AM) 0.1 K/CMM *LOW* (06/26/15 11:01 PM) Lymphocytes # [1.0-5.5 K/CMM] 0.3 K/CMM (06/28/15 4:05 AM) 0.1 K/CMM (06/26/15 11:01 PM) Monocytes # [0.0-0.8 K/CMM] Immunizations No data available for this section Procedures Procedure Date Related Diagnosis Body Site Cholecystectomy Social History Social History Type Response Alcohol Never Smoking Status Current some day smoker; Type: Cigarettes; Exposure to Tobacco Smoke None; Cigarette Smoking Last 365 Days No; Reg Smoking Cessation Counseling No Assessment and Plan Extracted from: Title: General Surgery Progress Author: Omar Bruce MD Date: 06/29/15 Note * Impression and Plan Diagnosis: Abdominal pain ([id number] R10.9, Working, Medical). I described the operative findings. I recommended advancing diet as tolerated. OK to DC home. Ready for D/C: Yes. Extracted from: Title: General Surgery Consult * Author: Omar Bruce MD Date: 06/27/15 Impression and Plan Diagnosis Abdominal pain ([id number] R10.9, Working, Medical). The cause of her pain is unclear. The CT shows findings consistent with a partial small bowel obstruction and there are foreign bodies in the GB fossa consistent with surgical clips and gallstones. It is common for gallstones to escape the GB during dissection. These rarely result in any clinical symptoms, but I cannot be sure they are the cause of her pain. I explained the surgical approach and its limitations. Since I cannot pinpoint the cause of her pain I cannot be certain that an attempt to remove the stones would be effective in relieving her symptoms( nor can I be certain that I can find all the retained stones). After a lengthy discussion of the risks and benefits to this operation, she gives informed consent. I will schedule i for tomorrow..
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
--- OUTSIDE RECORDS SUMMARY | 2018-04-25 00:16 | XMS REPORT | Continuity of Care Document ---
Author Author [facility] Address Unknown Phone Unavailable Care Team Providers Care Human Resources Assistant Name Role Phone Betsey Guardado MD, PP Unavailable Insurance Providers Payer name Policy type / Coverage type Policy ID Covered libertarian ID Policy [place] - TM[place] - TRADITIONAL Encounters Encounter Performer Location Date Office Visit Betsey Guardado MD [facility] Jun 04, [...]
--- OUTSIDE RECORDS SUMMARY | 2018-04-25 00:17 | XMS REPORT | Clinical Summary ---
Author Author [facility] Organization [facility] Address Unknown Phone Unavailable Care Team Providers Care Mail Handler Sorter Name Role Phone PCP Unavailable Allergies No [...] 07/27/2017 Emergency Emergency Medicine - 07/28/2017 after 02/10/2017 Immunizations Name Dates Previously Given Next Due [...] POC Routine 07/27/2017 7:23 PM CDT after 02/10/2017 Results * 12 LEAD EKG (07/27/2017 11:40 PM CDT) 12 LEAD EKG FOR [facility] Jae Nash [facility] Test Date:2017-07-27 Pat Name: ARELY JOY Department: Room: Gender: F Band Saw Marker: [id number] :1986-0 06-16 Requested By: Order Number: [id number] MD: Omar CODY Measurements Intervals [place] Rate: 79 P:46 AL: 163 QRS: 38 QRSD: 88 T:67 QT: [...] URINE DIPSTICK - (07/27/2017 9:27 PM CDT) [facility] pass Control negative * UA CHEMISTRIES (07/27/2017 9:20 PM CDT) Pathologist [facility] Color Yellow [facility] MAIN-STATION 2 Clarity Hazy [facility] MAIN-ST[facility] 2 Spec Martin 1.012 1.001 - 1.035 [facility] MAIN-STATION 2 [...] MAIN-STATION 2 Specimen Urine Performing Organization Address [facility] Phone Number MISYS [facility] MAIN-STATION 2 * LIVER PROFILE (07/27/2017 7:50 PM CDT) [facility] T Protein 7.3 6.4 - 8.2 g/dL [facility] MAIN-STATION 1 Albumin 3.4 3.4 - 5.0 g/dL [facility] MAIN-ST[facility] 1 T Bilirubin 0.5 0.2 - 1.0 mg/dL [facility] MAIN-ST[facility] 1 Alk Phos 96 45 - 117 U/L [facility] MAIN-STATION 1 AST 21 15 - 37 U/L [facility] MAIN-STATION 1 ALT 22 12 - 78 U/L [facility] MAIN-ST[facility] 1 D Bilirubin 0.1 0.0 - 0.2 mg/dL [facility] MAIN-STATION 1 Specimen Blood Performing Organization Address [facility] Phone Number MISYS [facility] MAIN-STATION 1 * LIPASE (07/27/2017 7:50 PM CDT) [facility] Lipase 78 73 - 393 U/L [facility] MAIN-STATION 1 Specimen Blood Performing Organization Address City/State/Zipcode Phone Number MISYS [facility] MAIN-STATION 1 * CBC/DIFF (07/27/2017 7:50 PM CDT) WBC 7.5 4.5 - 11.0 K/uL [facility] MAIN-STATION 2 RBC 4.26 4.20 - 5.40 M/uL [facility] MA[facility]-STATION 2 Hemoglobin 12.0 12.0 - 16.0 g/dL [facility] MA[facility] 2 Hematocrit 36.0 (L) 37.0 - 47.0 % [facility] MA[facility] 2 MCV 85 82 - 92 fL [facility] MAIN-STATION 2 MCH 28.2 27.0 - 32.0 pg [facility] MAIN-[facility] 2 MCHC 33.3 32.0 - 36.0 g/dL [facility] MAIN-STATION 2 RDW 37.1 36.4 - 46.3 fL [facility] MAIN-STATION 2 Platelet 321 150 - 400 K/uL [facility] Mean Platelet 9.3 (L) 9.4 - 12.4 fL [facility] Volume MAIN-STATION 2 Percent NRBC 0.0 [facility] MAIN-ST[facility] 2 Absolute NRBC 0.00 [facility] MAIN-[facility] 2 Neutrophil 75.4 (H) 34.0 - 70.0 % [facility] MA[facility] 2 Lymphocyte 16.8 (L) 20.0 - 50.0 % [facility] MA[facility] 2 Monocyte 7.1 5.0 - 12.0 % [facility] MA[facility] 2 Eosinophil 0.1 (L) 0.7 - 5.0 % [facility] MA[facility] 2 Basophil 0.3 0.1 - 1.2 % [facility] MAIN-STATION 2 Pct Immat Gran 0.3 0.0 - 0.5 [facility] MAIN-STATION 2 Neutrophil, Abs 5.67 1.56 - 6.13 K/uL [facility] MAIN-STATION 2 Lymphocyte, Abs 1.26 1.18 - 3.74 K/uL [facility] MAIN-STATION 2 Monocyte, Abs 0.53 (H) 0.24 - 0.36 K/uL [facility] MAIN-STATION 2 Eosinophil, Abs 0.01 (L) 0.04 - 0.36 K/uL [facility] MAIN-STATION 2 Basophil, Abs 0.02 0.01 - 0.08 K/uL [facility] MAIN-STATION 2 Absol Immat 0.02 0.00 - 0.03 K/uL [facility] Gran MAIN-STATION 2 Specimen Blood Performing Organization Address [facility] Phone Number [facility] MAINSTATION 2 * VBG POC (07/27/2017 7:23 PM CDT) pH, Carol POC 7.63 (H)Comment: Spec sent to 7.33 - 7.43 [facility] Lab MAIN-STATION 1 pCO2, Carol POC 16.7 (L) 38.0 - 50.0 mm Hg [facility] MAIN-STATION 1 pO2, Carol POC 128 (H) 50 - 75 mm Hg [facility] MAIN-STATION 1 Base Deficit, 1 [facility] Carol POC MAIN-STATION 1 HCO3, Carol POC 17.3 (L) 22.0 - 26.0 mmol/L [facility] MAIN-STATION 1 % Sat, Carol POC 100 (H) 60 - 85 % [facility] MAIN-STATION 1 Lactic Acid, 1.10 0.4 - 2.0 mmol/L [facility] Carol POC MAIN-STATION 1 TCO2, CAROL POC 18 (L) 21 - 32 mmol/L [facility]-ST[facility] 1 Performing Organization Address [facility] Phone Number [facility] MAIN-STATION 1 * BMP POC (07/27/2017 7:23 PM CDT) CO2 POC 19 (L)Comment: Spec sent to 21 - 32 mmol/L [facility] Lab MAIN-STATION 1 Chloride POC 106 98 - 107 mmol/L [facility] MAIN-STATION 1 Potassium POC 3.8 3.50 - 5.10 mmol/L [facility] MAIN-STATION 1 Sodium POC 140 136 - 145 mmol/L [facility] MAIN-STATION 1 Glucose POC 135 (H) 74 - 106 mg/dL [facility] MAIN-STATION 1 Urea Nitrogen 7 7 - 18 mg/dL [facility] POC MAIN-STATION 1 Creatinine POC 0.5 (L) 0.6 - 1.3 mg/dL [facility] MAIN-STATION 1 Calcium Ionized 0.79 (L) 1.15 - 1.29 mmol/L [facility] POC MAIN-STATION 1 Hemoglobin POC 12.9 12.0 - 16.0 g/dL [facility] MAIN-STATION 1 Hematocrit POC 38.0 37.0 - 47.0 % [facility] MAIN-STATION 1 GFR, Estimated >60 mL/min/1.73 m2 [facility] MAIN-[facility] 1 GFR, Estim, >60 mL/min/1.73 m2 [facility]IN-[facility] 1 Performing Organization Address City/State/Zipcode Phone Number DOMO [facility] 1 after 02/10/2017 Insurance Type Payer Benefit Subscriber ID Effective Phone Address Plan / Dates Group [facility] xxxxxxxxx 2013-P [phone] [address] [facility] [id number] [facility] [id number]
--- OUTSIDE RECORDS SUMMARY | 2018-04-25 00:17 | XMS REPORT | Clinical Summary ---
Author Author [facility] Organization [facility] Address Unknown Phone Unavailable Care Team Providers Care Glue Wheel Operator Name Role Phone PCP Unavailable Allergies No [...] tablets by mouth 2 90 tablet 0 20 Active 500 mg tabletIndications: times daily (with meals). 17 Diabetes mellitus due to underlying condition with diabetic nephropathy, without long-term current use of insulin gabapentin (NEURONTIN) Take one tablet before 90 capsule 0 20 Active 300 mg bedtime. 17 capsuleIndications: Diabetes mellitus due to underlying condition with diabetic nephropathy, without long-term current use of insulin glipiZIDE (GLUCOTROL) 5 Take 1 tablet by mouth 30 tablet 0 20 Active mg tabletIndications: daily. 17 Diabetes mellitus due to underlying condition with diabetic nephropathy, without long-term current use of insulin acetaminophen (TYLENOL) Take 1 tablet by mouth 30 tablet 0 20 Active 500 mg tabletIndications: every 6 hours as needed 18 RUQ pain for Pain. ibuprofen (MOTRIN) 400 mg Take 1 tablet by mouth 30 tablet 0 07/29/19 Active tabletIndications: RUQ every 6 hours as needed 18 pain for Pain. Active Problems Problem Noted Date [...] Care Team Description 07/27/2017 Emergency Emergency Medicine Parvin Dixon MD RUQ pain (Primary Dx) - Cb Landeros, 07/28/2017 MD after 11/20/2016 Immunizations Name Dates Previously Given Next Due [...] Vital Sign Reading Time Taken Blood Pressure 130/70 07/28/2017 1:40 AM CDT Pulse 80 07/28/2017 1:40 AM CDT Temperature 37.2 C (99 F) 07/28/2017 1:40 AM CDT Respiratory Rate 18 07/28/2017 1:40 AM CDT Oxygen Saturation 98% 07/28/2017 1:40 AM CDT Inhaled Oxygen - - Concentration Weight [...] 06/28/2016, Scrn (Yearly) Additional history exists Procedures Procedure Name Priority Date/Time Associated Diagnosis Comments 12 LEAD EKG Routine 07/27/2017 Results for this 11:40 PM CDT procedure are in the results section. CT ABDOMEN AND PELVIS STAT 07/27/2017 RUQ pain Results for this CONTRAST 10:02 PM CDT procedure are in the results section. POCT URINE DIPSTICK - STAT 07/27/2017 Results for this 9:27 PM CDT procedure are in the results section. UA CHEMISTRIES STAT 07/27/2017 Results for this 9:20 PM CDT procedure are in the results section. LIPASE STAT 07/27/2017 Results for this 7:50 PM CDT procedure are in the results section. LIVER PROFILE STAT 07/27/2017 Results for this 7:50 PM CDT procedure are in the results section. CBC/DIFF STAT 07/27/2017 Results for this 7:50 PM CDT procedure are in the results section. BMP POC Routine 07/27/2017 Results for this 7:23 PM CDT procedure are in the results section. VBG POC Routine 07/27/2017 Results for this 7:23 PM CDT procedure are in the results section. 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: [id number] :1986-0 06-16 Requested By: Order Number: [id number] fito MORALES: Omar CODY Measurements Intervals [place] Rate: 79 P:46 NV: 163 QRS: 38 QRSD: 88 T:67 QT: 378 QTc:435 Interpretive Statements SINUS RHYTHM POSSIBLE LEFT ATRIAL ENLARGEMENT [-0.1mV P WAVE IN V1/V2] NONSPECIFIC T-WAVE ABNORMALITY Abnormal ECG Electronically Signed On 07-28-17 10:56:56 CDT by Omar CODY Performing Organization Address City/State/Zipcode Phone Number SMS * CT ABDOMEN AND PELVIS CONTRAST (07/27/2017 10:02 PM) Impressions Performed At IMPRESSION: SMS 1.No acute [...] * POCT URINE DIPSTICK - (07/27/2017 9:27 PM) Control pass negative * UA CHEMISTRIES (07/27/2017 9:20 PM) Color Yellow [facility] 2 Clarity Hazy [facility] 2 Spec [place] 1.012 1.001 - 1.035 [facility] 2 pH 7.0 5 - 8 [facility] 2 Protein 2+ (A) NEG [facility] 2 Glucose Negative NEG [facility] 2 Ketone Negative NEG [facility] 2 Bilirubin Negative NEG [facility] 2 Nitrate Negative NEG [facility] 2 Urobilinogen <1.0 0.2 - 1.0 EU/dL [facility] 2 Leukocyte Trace (A) NEG [facility] 2 Blood 3+ (A) NEG [facility] 2 RBC 1 0 - 4 /HPF [facility] 2 WBC 6 (H) 0 - 5 /HPF [facility] 2 Bacteria Few [facility] 2 Epithelial Cell 3 /HPF [facility] 2 Mucous Present [facility] 2 Specimen Urine Performing Organization Address [facility] Phone Number [facility] 2 * LIVER PROFILE (07/27/2017 7:50 PM) T Protein 7.3 6.4 - 8.2 g/dL [facility] 1 Albumin 3.4 3.4 - 5.0 g/dL [facility] 1 T Bilirubin 0.5 0.2 - 1.0 mg/dL [facility] 1 Alk Phos 96 45 - 117 U/L [facility] 1 AST 21 15 - 37 U/L [facility] 1 ALT 22 12 - 78 U/L [facility] 1 D Bilirubin 0.1 0.0 - 0.2 mg/dL [facility] 1 Specimen Blood Performing Organization Address [facility] Phone Number [facility] 1 * LIPASE (07/27/2017 7:50 PM) Lipase 78 73 - 393 U/L [facility] 1 Specimen Blood Performing Organization Address [facility] Phone Number [facility] 1 * CBC/DIFF (07/27/2017 7:50 PM) WBC 7.5 4.5 - 11.0 K/uL [facility] 2 RBC 4.26 4.20 - 5.40 M/uL [facility] 2 Hemoglobin 12.0 12.0 - 16.0 g/dL [facility] 2 Hematocrit 36.0 (L) 37.0 - 47.0 % [facility] 2 MCV 85 82 - 92 fL [facility] 2 MCH 28.2 27.0 - 32.0 pg [facility] 2 MCHC 33.3 32.0 - 36.0 g/dL [facility] 2 RDW 37.1 36.4 - 46.3 fL [facility] 2 Platelet 321 150 - 400 K/uL [facility] 2 Mean Platelet Volume 9.3 (L) 9.4 - 12.4 fL [facility] 2 Percent NRBC 0.0 [facility] 2 Absolute NRBC 0.00 [facility] 2 Neutrophil 75.4 (H) 34.0 - 70.0 % [facility] 2 Lymphocyte 16.8 (L) 20.0 - 50.0 % [facility] 2 Monocyte 7.1 5.0 - 12.0 % [facility] 2 Eosinophil 0.1 (L) 0.7 - 5.0 % [facility] 2 Basophil 0.3 0.1 - 1.2 % [facility] 2 Pct Immat Gran 0.3 0.0 - 0.5 [facility] 2 Neutrophil, Abs 5.67 1.56 - 6.13 K/uL [facility] 2 Lymphocyte, Abs 1.26 1.18 - 3.74 K/uL [facility] 2 Monocyte, Abs 0.53 (H) 0.24 - 0.36 K/uL [facility] 2 Eosinophil, Abs 0.01 (L) 0.04 - 0.36 K/uL [facility] 2 Basophil, Abs 0.02 0.01 - 0.08 K/uL [facility] 2 Absol Immat Gran 0.02 0.00 - 0.03 K/uL [facility] 2 Specimen Blood Performing Organization Address City/State/Zipcode Phone Number MISYS [facility] 2 * VBG POC (07/27/2017 7:23 PM) pH, Carol POC 7.63 (H)Comment: Spec sent to 7.33 - 7.43 [place] [address] Lab pCO2, Carol POC 16.7 (L) 38.0 - 50.0 mm Hg [place] [address] pO2, Carol POC 128 (H) 50 - 75 mm Hg [place] [address] Base Deficit, Carol POC 1 [place] [address] HCO3, Carol POC 17.3 (L) 22.0 - 26.0 mmol/L [place] [address] % Sat, Carol POC 100 (H) 60 - 85 % [place] [address] Lactic Acid, Carol POC 1.10 0.4 - 2.0 mmol/L [place] [address] TCO2, CAROL POC 18 (L) 21 - 32 mmol/L [place] [address] Performing Organization Address [facility] Phone Number MISYS [place] [address] * BMP POC (07/27/2017 7:23 PM) CO2 POC 19 (L)Comment: Spec sent to 21 - 32 mmol/L [place] [address] Lab Chloride POC 106 98 - 107 mmol/L [place] [address] Potassium POC 3.8 3.50 - 5.10 mmol/L [place] [address] Sodium POC 140 136 - 145 mmol/L [place] [address] Glucose POC 135 (H) 74 - 106 mg/dL [place] [address] Urea Nitrogen POC 7 7 - 18 mg/dL [place] [address] Creatinine POC 0.5 (L) 0.6 - 1.3 mg/dL [place] [address] Calcium Ionized POC 0.79 (L) 1.15 - 1.29 mmol/L [place] [address] Hemoglobin POC 12.9 12.0 - 16.0 g/dL [place] [address] Hematocrit POC 38.0 37.0 - 47.0 % [place] [address] GFR, Estimated >60 mL/min/1.73 m2 [place] [address] GFR, Estim, Afr-Am >60 mL/min/1.73 m2 [place] [address] Performing Organization Address [facility] Phone Number MISYS [place] [address] after 11/20/2016
--- OUTSIDE RECORDS SUMMARY | 2018-04-25 00:17 | XMS REPORT | Clinical Summary ---
Author Author [facility] Organization [facility] Address Unknown Phone Unavailable Care Team Providers Care Screener Perfumer Name Role Phone PCP Unavailable Allergies No [...] Date Type Specialty Devyn [place] Basic Needs 03/20/2018 Telephone Infectious Diseases Parvin Dixon MD Chathampally, Yashwant, MD RUQ pain (Primary Dx) 07/27/2017 Emergency Emergency Medicine - 07/28/2017 after 03/27/2017 Immunizations Name Dates Previously Given Next Due [...] POC Routine 07/27/2017 7:23 PM CDT after 03/27/2017 Results * 12 LEAD EKG (07/27/2017 11:40 PM CDT) 12 LEAD EKG FOR SMS [facility] Test Date:2017-07-27 Pat Name: ARELY JOY Department: Room: Gender: F 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: [id number] :1986-0 06-16 Requested By: Order Number: R [id number] MORALES: Omar CODY Measurements Intervals [place] Rate: 79 P:46 SC: 163 QRS: 38 QRSD: 88 T:67 QT: [...] MD, 07/27/2017 10:20 PM Performing Organization Address [facility] Phone Number SMS * POCT URINE DIPSTICK - (07/27/2017 9:27 PM CDT) pass Control negative * UA CHEMISTRIES (07/27/2017 9:20 PM CDT) Color Yellow [facility] 2 Clarity Hazy [facility] 2 Spec [place] 1.012 1.001 - 1.035 [facility] [...] [facility] 2 Specimen Urine Performing Organization Address [facility] Phone Number MISYS [facility] * [...] [facility] 1 Specimen Blood Performing Organization Address [facility]/Zipcode Phone Number MISYS [facility] 1 * LIPASE (07/27/2017 7:50 PM CDT) Lipase 78 73 - 393 U/L [facility] 1 Specimen Blood Performing Organization Address [facility]/Zipcode Phone Number [facility] 1 * CBC/DIFF (07/27/2017 7:50 [...] 2 RDW 37.1 36.4 - 46.3 fL [facility] 2 Platelet 321 150 - 400 K/uL [facility] 2 Mean Platelet 9.3 (L) 9.4 - 12.4 fL [facility] Volume [facility] 2 Percent NRBC 0.0 [facility] 2 Absolute NRBC 0.00 [facility] 2 Neutrophil 75.4 (H) 34.0 - [...] Abs 0.01 (L) 0.04 - 0.36 K/uL [facility] 2 Basophil, Abs 0.02 0.01 - 0.08 K/uL [facility] 2 Absol Immat 0.02 0.00 - 0.03 K/uL [facility] Gran [facility] 2 Specimen Blood Performing Organization Address [facility] Phone [facility] * VBG POC (07/27/2017 7:23 PM CDT) pH, Carol POC 7.63 (H)Comment: Spec sent to 7.33 - 7.43 [facility] Lab [facility] 1 pCO2, Carol POC 16.7 (L) 38.0 - 50.0 mm Hg [facility] 1 pO2, Carol POC 128 (H) 50 - 75 mm Hg [facility] 1 Base Deficit, 1 [facility] Carol POC [facility] 1 HCO3, Carol POC 17.3 (L) 22.0 - 26.0 mmol/L [facility] 1 % Sat, Carol POC 100 (H) 60 - 85 % [facility] 1 Lactic Acid, 1.10 0.4 - 2.0 mmol/L [facility] Carol POC [facility] 1 TCO2, CAROL POC 18 (L) 21 - 32 mmol/L [facility] 1 Performing Organization Address [facility] Phone Number [facility] 1 * BMP POC (07/27/2017 7:23 PM CDT) CO2 POC 19 (L)Comment: Spec sent to 21 - 32 mmol/L [facility] Lab [facility]IN[facility] 1 Chloride POC 106 98 - 107 mmol/L [facility] 1 Potassium POC 3.8 3.50 - 5.10 mmol/L [facility] 1 Sodium POC 140 136 - 145 mmol/L [facility] 1 Glucose POC 135 (H) 74 - 106 mg/dL [facility] 1 Urea Nitrogen 7 7 - 18 mg/dL [facility] POC [facility] 1 Creatinine POC 0.5 (L) 0.6 - 1.3 mg/dL [facility] 1 Calcium Ionized 0.79 (L) 1.15 - 1.29 mmol/L [facility] POC [facility] 1 Hemoglobin POC 12.9 12.0 - 16.0 g/dL [facility] 1 Hematocrit POC 38.0 37.0 - 47.0 % [facility] 1 GFR, Estimated >60 mL/min/1.73 m2 [facility] 1 GFR, Estim, >60 mL/min/1.73 m2 [facility] Afr-Am [facility]IN-STATION 1 Performing Organization Address City/State/Zipcode Phone Number MISYS [facility] 1 after 03/27/2017
--- OUTSIDE RECORDS SUMMARY | 2018-04-25 00:17 | XMS REPORT ---
Author Author [facility] Address Unknown Phone Unavailable Care Team Providers Care Supervisor Motor Vehicle Assembly Name Role Phone JOHN HERNÁNDEZ Unavailable Unavailable Payers Payer Name Policy Type Policy Number Effective Date Expiration Date Problems This patient has no known problems. Allergies, Adverse Reactions, Alerts Allergy Name Allergy Type Status Severity Reaction(s) Onset Date Inactive Date Treating Clinician Comments No Known Allergies DA Active U 2018-01-04 00:00:00 No Known Allergies DA Active U 2017-05-17 00:00:00 Medications This patient has no known medications. Encounters Start Date/Time End Date/Time Encounter Type Admission Type Attending [facility] Care Department Encounter ID 2018-04-01 00:00:00 Inpatient [facility] [id number] 2018-04-01 00:00:00 2018-04-01 00:00:00 Outpatient [facility] [id number] 2018-04-01 00:00:00 2018-04-01 00:00:00 Outpatient [facility] [id number] 2017-07-27 21:37:50 2017-07-27 21:37:50 Emergency [facility] [id number] 2017-07-27 18:52:46 2017-07-27 18:52:46 Emergency [facility] [id number] Results Test Description Test Time Test Comments Text Results Atomic Results Result Comments POC Glucose, Blood 2016-06-05 09:40:00 POC Glucose (test code=POCGLUC) 256 mg/dL 70-115 If you consider your patient critically ill, the Norma Accu-Chek InformII metershould not be used for Glucose determinations.Draw a venous Glucose and send to the Main Lab for Analysis. Urinalysis [id number] 08:54:00* Test Item Value Reference Range Comments Color (test code=COLOR) Yellow Yellow,Straw,Pl yellow Clarity (test code=CLAR) Sl Cloudy Clear Specific [place] (test code=SPGR) 1.043 1.001-1.035 pH (test code=PH) 5.0 5.0-9.0 Ketone (test code=KET) Negative mg/dL Negative Glucose (test code=GLUCUR) 1000 mg/dL Negative Protein (test code=PROT) 25 mg/dL Negative Bilirubin (test code=BILI) Negative mg/dL Negative Occult Blood (test code=UDOB) Small Negative Urobilinogen (test code=UROB) 0.2 mg/dL 0.2-1.0 Nitrite (test code=NIT) Negative Negative Leuk Esterase (test code=LEUK) Large Negative Micros Exam (test code=MEXAM) Indicated Epithelial Cells (test code=EPI) 6-9 /LPF 0-30 WBC, Urine (test code=UWBC) 21-30 /HPF 0-5 RBC, Urine (test code=URBC) 0-3 /HPF 0-5 Bacteria (test code=BACT) Few /HPF Comprehensive Metabolic [id number] 08:51:00* Test Item Value Reference Range Comments Sodium (test code=NA) 130 mmol/L 135-145 Potassium (test code=K) 4.2 mmol/L 3.5-5.1 Chloride (test code=CL) 95 mmol/L 98-105 Carbon Dioxide (test code=CO2) 24 mmol/L 22-29 Glucose (test code=GLU) 426 mg/dL 70-115 Blood Urea Nitrogen (test code=BUN) 12 mg/dL 6-20 Creatinine (test code=CREAT) 0.5 mg/dL 0.5-0.9 Calcium (test code=CA) 9.2 mg/dL 8.3-10.5 Prot Total (test code=TP) 7.6 g/dL 6.4-8.3 Albumin (test code=ALB) 4.0 g/dL 3.5-5.2 A/G Ratio (test code=AGRATIO) 1.1 Ratio Globulin (test code=GLOB) 3.6 2.9-3.1 Bili Total (test code=TBIL) 0.4 mg/dL 0.1-0.9 Alk Phos (test code=APHOS) 110 U/L 35-104 AST (test code=AST) 12 U/L 1-32 ALT (test code=ALT) 12 U/L 1-33 BUN/Creatinine Ratio (test code=BCRATIO) 24.0 Anion Gap (test code=AGAP) 11 mmol/L 7-16 Estimated GFR (test code=GFR) >60 mL/min/1.73m2 eGFR (estimated Glomerular Filtration Rate) is an estimated value,calculated from the patient's serum creatinine using the MDRD equation.It is NOT the patient's actual GFR. The eGFR provides a more clinicallyuseful measure of kidney disease than serum creatinine alone.This calculation takes sex and race into account, if the informationis provided. If the race is not provided, and the patient isAfrican-Guatemalan, multiply by 1.212. If sex is not provided, and thepatient is female, multiply by 0.742. Results for patients <18 years ofage have not been validated by the MDRD study and should be interpretedwith caution.eGFR Result Interpretation:eGFR > or=60 is in the Normal RangeeGFR < 60 may mean kidney diseaseeGFR < 15 may mean kidney failureRanges recommended by the National Kidney Foundat ion,http://nkdep.nih.gov POC Glucose, [id number] 08:48:00* Test Item Value Reference Range Comments POC Glucose (test code=POCGLUC) 397 mg/dL 70-115 If you consider your patient critically ill, the Norma Accu-Chek InformII metershould not be used for Glucose determinations.Draw a venous Glucose and send to the Main Lab for Analysis. BHCG, Serum, [id number] 08:37:00* Test Item Value Reference Range Comments Preg Qual [Se] (test code=BSHCG) Negative Negative [id number] 08:37:00* Test Item Value Reference Range Comments Lipase (test code=LIP) 20 U/L 13-60 CBC with [id number] 08:31:00* Test Item Value Reference Range Comments WBC (test code=WBC) 17.1 K/cumm 4.4-10.5 RBC (test code=RBC) 4.95 M/cumm 3.75-5.20 Hemoglobin (test code=HGB) 14.0 gm/dL 12.2-14.8 Hematocrit (test code=HCT) 42.0 % 36.5-44.4 MCV (test code=MCV) 84.8 fL 80-100 MCH (test code=MCH) 28.4 pg 27.0-32.5 MCHC (test code=MCHC) 33.4 g/dL 32.0-37.5 RDW (test code=RDW) 14.5 % 11.5-14.5 Platelet Count (test code=PLTCT) 470 K/cumm 140-440 MPV (test code=MPV) 8.5 fL Diff Method (test code=DIFFM) Auto Neutrophil (test code=NEUT) 86.1 % 36-70 Lymphocyte (test code=LYMPH) 10.4 % 12-44 Monocyte (test code=MONO) 2.8 % 0-11 Eosinophil (test code=EOS) 0.5 % 0-7 Basophil (test code=BASO) 0.1 % 0-2 Neutro Abs (test code=ANEUT) 14.7 K/cumm 1.6-7.4 Lymph Abs (test code=ALYMPH) 1.8 K/cumm 0.5-4.6 [place] Abs (test code=AMONO) 0.5 K/cumm 0.0-1.2 Eos Abs (test code=AEOS) 0.09 K/cumm 0.00-0.74 Baso Abs (test code=ABASO) 0.0 K/cumm 0.00-0.21
--- OUTSIDE RECORDS SUMMARY | 2018-04-25 00:17 | XMS REPORT | Clinical Summary ---
Author Author [facility] Organization [facility] Address Unknown Phone Unavailable Care Team Providers Care Gun Number Name Role Phone PCP Unavailable Allergies No [...] pain (Primary Dx) - Cb Landeros, 07/28/2017 after 12/08/2016 Immunizations Name Dates Previously Given Next Due [...] procedure are in the results section. 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 :[birth year] Requested By: Order Number: [id number] : Omar CODY Measurements Intervals [place] Rate: 79 P:46 [place]: 163 QRS: 38 [...] UA CHEMISTRIES (07/27/2017 9:20 PM) Color Yellow [facility] MA[facility] 2 Clarity Hazy [facility] 2 Spec Gilberts 1.012 1.001 - 1.035 [facility] MA[facility] 2 pH 7.0 5 - 8 [facility] MAIN-STATION 2 Protein 2+ (A) NEG [facility] MAIN-STATION 2 Glucose Negative NEG [facility] MAIN-STATION 2 Ketone Negative NEG [facility] MAIN-STATION 2 Bilirubin Negative NEG [facility] MAIN-STATION 2 Nitrate Negative NEG LB MAIN-STATION 2 Urobilinogen <1.0 0.2 - 1.0 EU/dL LB MAIN-STATION 2 Leukocyte Trace (A) NEG [facility] 2 Blood 3+ (A) NEG [facility] MA[facility] 2 RBC 1 0 - 4 /HPF [facility] MA[facility] 2 WBC 6 (H) 0 - 5 /HPF LB MAIN-STATION 2 Bacteria Few [facility] MAIN-STATION 2 Epithelial Cell 3 /HPF [facility] MA[facility] 2 Mucous Present LB MAIN-STATION 2 Specimen Urine Performing Organization Address [facility] Phone Number [facility] MAIN-STATION 2 * LIVER PROFILE (07/27/2017 7:50 PM) T Protein 7.3 6.4 - 8.2 g/dL [facility] MAIN-[facility] 1 Albumin 3.4 3.4 - 5.0 g/dL [facility] MA[facility] 1 T Bilirubin 0.5 0.2 - 1.0 mg/dL [facility] MA[facility] 1 Alk Phos 96 45 - 117 U/L [facility] MA[facility] 1 AST 21 15 - 37 U/L [facility] 1 ALT 22 12 - 78 U/L [facility] MA[facility] 1 D Bilirubin 0.1 0.0 - 0.2 mg/dL [facility] MAIN-[facility] 1 Specimen Blood Performing Organization Address [facility] Phone Number [facility] 1 * LIPASE (07/27/2017 7:50 PM) Lipase 78 73 - 393 U/L [facility] MAIN-[facility] 1 Specimen Blood Performing Organization Address [facility] Phone Number [facility] 1 * CBC/DIFF (07/27/2017 7:50 PM) WBC 7.5 4.5 - 11.0 K/uL [facility] MAIN-[facility] 2 RBC 4.26 4.20 - 5.40 M/uL [facility] MA[facility] 2 Hemoglobin 12.0 12.0 - 16.0 g/dL [facility] MA[facility] 2 Hematocrit 36.0 (L) 37.0 - 47.0 % [facility] MA[facility] 2 MCV 85 82 - 92 fL [facility] MA[facility] 2 MCH 28.2 27.0 - 32.0 pg [facility] MAIN-[facility] 2 MCHC 33.3 32.0 - 36.0 g/dL [facility] MA[facility] 2 RDW 37.1 36.4 - 46.3 fL [facility] MAIN-[facility] 2 Platelet 321 150 - 400 K/uL [facility] MA[facility] 2 Mean Platelet Volume 9.3 (L) 9.4 - 12.4 fL [facility] MAIN-[facility] 2 Percent NRBC 0.0 [facility] MA[facility] 2 Absolute NRBC 0.00 [facility] 2 Neutrophil 75.4 (H) 34.0 - 70.0 % [facility] MA[facility] 2 Lymphocyte 16.8 (L) 20.0 - 50.0 % [facility] MA[facility] 2 Monocyte 7.1 5.0 - 12.0 % [facility] MA[facility] 2 Eosinophil 0.1 (L) 0.7 - 5.0 % [facility] MA[facility] 2 Basophil 0.3 0.1 - 1.2 % [facility] MA[facility] 2 Pct Immat Gran 0.3 0.0 - 0.5 [facility] MA[facility] 2 Neutrophil, Abs 5.67 1.56 - 6.13 K/uL [facility] MAIN-[facility] 2 Lymphocyte, Abs 1.26 1.18 - 3.74 K/uL [facility] MA[facility] 2 Monocyte, Abs 0.53 (H) 0.24 - 0.36 K/uL [facility] MA[facility] 2 Eosinophil, Abs 0.01 (L) 0.04 - 0.36 K/uL [facility] MAIN-[facility] 2 Basophil, Abs 0.02 0.01 - 0.08 K/uL [facility] MAIN-[facility] 2 Absol Immat Gran 0.02 0.00 - 0.03 K/uL [facility] MAIN-[facility] 2 Specimen Blood Performing Organization Address City/State/Zipcode Phone Number [facility] MAIN-STATION 2 * VBG POC (07/27/2017 7:23 PM) pH, Carol POC 7.63 (H)Comment: Spec sent to 7.33 - 7.43 [place] [id number] Lab pCO2, Carol POC 16.7 (L) 38.0 - 50.0 mm Hg [place] [address] pO2, Carol POC 128 (H) 50 - 75 mm Hg [place] [address] Base Deficit, Carol POC 1 [place] [address] HCO3, Carol POC 17.3 (L) 22.0 - 26.0 mmol/L [place] [address] % Sat, Carol POC 100 (H) 60 - 85 % [place] [address] Lactic Acid, Carol POC 1.10 0.4 - 2.0 mmol/L [place] [address] TCO2, CAROL POC 18 (L) 21 - 32 mmol/L [place] [id number] Performing Organization Address [facility] Phone Number [facility] [place] [id number] * BMP POC (07/27/2017 7:23 PM) CO2 POC 19 (L)Comment: Spec sent to 21 - 32 mmol/L [place] [address] Lab Chloride POC 106 98 - 107 mmol/L [place] [address] Potassium POC 3.8 3.50 - 5.10 mmol/L [place] [address] Sodium POC 140 136 - 145 mmol/L [place] [address] Glucose POC 135 (H) 74 - 106 mg/dL [place] [address] Urea Nitrogen POC 7 7 - 18 mg/dL [place] [address] Creatinine POC 0.5 (L) 0.6 - 1.3 mg/dL [place] [address] Calcium Ionized POC 0.79 (L) 1.15 - 1.29 mmol/L [place] [address] Hemoglobin POC 12.9 12.0 - 16.0 g/dL [place] [address] Hematocrit POC 38.0 37.0 - 47.0 % [place] [address] GFR, Estimated >60 mL/min/1.73 m2 [place] [address] GFR, Estim, Afr-Am >60 mL/min/1.73 m2 [place] [address] Performing Organization Address [facility] Phone Number [facility] [place] [id number] after 12/08/2016
[2018-04-25] MEDS ORDERED: KETOROLAC TROMETHAMINE 30 MG/ML VIAL IV STA (00:19)
[2018-04-25] MEDS ORDERED: ONDANSETRON HCL INJ 2MG/ML 2ML 2 MG/ML VIAL IV STA (00:19)
[2018-04-25] MEDS ORDERED: SODIUM CHLORIDE 0.9% 1000ML 1,000 ML IV SCH ×2 (00:30→01:00)
[2018-04-25] MEDS ORDERED: FENTANYL CITRATE/PF 100MCG/2 ML INJ IV ONE (00:30)
--- NOTE | 2018-04-25 01:48 | Diagnostic Imaging Report ---
CT Abdomen and Pelvis without contrast INDICATION: Left lower quadrant pain radiating to left upper quadrant TECHNIQUE: Thin collimation axial images obtained from the diaphragm to the level of the pubic symphysis without nonionic intravenous contrast. Dose reduction techniques used: Automated exposure control, adjustment of the mAs and/or kVp according to patient size, standardized low-dose protocol, and/or iterative reconstruction technique. RADIATION DOSE: Total DLP: 814.26 mGy*cm Estimated effective dose: (DLP x 0.015 x size factor) mSv CTDIvol has been reviewed. It is below the limits set by the Radiation Protocol Committee (RPC). COMPARISON: None. ABDOMEN FINDINGS: Lung Bases: Two noncalcified nodules in the middle lobe measure up to 6 mm. The visualized portion of the mediastinum is normal. Liver: Diffusely low in attenuation and measures 2.2 cm in length. No mass. Gallbladder: Absent. Biliary tree: There is suggestion of a calculus in the cystic duct measuring 11 mm. Mild pneumobilia. The common bile duct is not dilated. Pancreas: Normal attenuation without mass. Spleen: Normal size without mass. Adrenal Glands: No evidence for mass. Kidneys: Right: Pixel sized hyperattenuating focus in the interpolar region of the right kidney may represent a Alfredo's plaque. No cortical mass or hydronephrosis Left: No defined renal calculus. Tiny focus of increased attenuation in a lower pole calyx of the left kidney may represent a Alfredo's plaque. Partly exophytic lesion from the lower pole measures 14 Hounsfield units and 12 mm, suggestive of a cyst Lymph Nodes: No enlarged abdominal or retroperitoneal lymph nodes.. Aorta: Normal in diameter. PELVIS FINDINGS: Bowel: Stomach: Normal in caliber with normal wall thickness. Small Bowel: Normal in caliber with normal wall thickness. Large Bowel: Normal in caliber with normal wall thickness. Appendix: Normal. Bladder: Normal. Ureters: No ureteral dilatation or calculus. The uterus is present and normal in morphology. There is a dominant follicle versus cyst in the left ovary measuring 3.2 x 3.3 cm. A calcification adjacent to the uterine fundus to the right of midline measures 14 mm. The right ovary appears normal. Peritoneum/retroperitoneum: No free fluid or fluid collection. Bones: Mild degenerative changes of the spine. Soft tissues: Fat-containing umbilical hernia has an aperture of 1.7 cm. No fluid in the hernia sac.. IMPRESSION: 1. No evidence of obstructive uropathy. Punctate hyperattenuating foci in each kidney may represent Alfredo's plaques. 2. Left renal lesion may represent a cyst. This can be confirmed with renal ultrasound on an outpatient basis. 3. No evidence for bowel obstruction or inflammation. Normal appendix 4. Steatosis and hepatomegaly. 5. Cholecystectomy with mild pneumobilia. Calcification in the gallbladder fossa may represent a calcification in the cystic duct. 6. Right pulmonary nodules, statistically benign. 7. Dominant follicle versus cyst in the left ovary. Signed by: Dr. Mandy Worthington MD on 04/25/2018 1:44 AM
[2018-04-25] MEDS ORDERED: KETOROLAC TROME10 MG PO (02:02)
--- NOTE | 2018-04-25 04:06 | Diagnostic Imaging Report ---
Transvaginal and transabdominal ultrasound Indication: Left adnexal pain Technique: Transabdominal ultrasound performed for global evaluation of the uterus. Transvaginal ultrasound performed for detailed evaluation of the endometrium and ovaries. Selected images provided for review. Comparison: CT abdomen/pelvis 04/25/2018 Findings: LMP: 04/18/2018 Transabdominally the uterus measures approximately 4.7 x 4.9 x 8.1 cm. The bladder is collapsed . Transvaginally, uterus is grossly normal in contour. No exophytic mass. No definite fibroid. The endometrial stripe measures 1.3 cm, is homogenously hyperechoic and is normal. The cervix contains is liver fluid in the endometrial canal No free fluid in the cul de sac. Right ovary is not visualized. Left ovary is poorly visualized transvaginally. Transabdominally, a cystic structure in the left ovary measures 3.5 x 3.6 x 4.0 cm. There is arterial and venous blood flow in the ovary on color and spectral Doppler interrogation. IMPRESSION: 1. Left ovarian cyst. No evidence of torsion. 2. Nonvisualization of the right ovary. 3. Normal uterus and endometrium. Signed by: Dr. Mandy Worthington MD on 04/25/2018 4:02 AM
== END 2018-04-25 04:49 | disposition home or self-care (01) ==
LOC: FSED 00:11
DX: R10.32 Left lower quadrant pain (principal); R10.2 Pelvic and perineal pain; R11.0 Nausea; N83.202 Unspecified ovarian cyst, left side; E11.65 Type 2 diabetes mellitus with hyperglycemia; Z21 Asymptomatic human immunodeficiency virus [HIV] infection status
CPT/HCPCS: 74176; 76856; 80053; 81003; 81025; 85025; 99284

== ENCOUNTER 2018-06-27 03:01 | Emergency (ER) | payer SELFPAY ==
[~2018-06-27] VITALS: Ht 167.6 cm; Wt 111.1 kg
[~2018-06-27 03:01] MED LIST: KETOROLAC TROME10 MG PO
--- OUTSIDE RECORDS SUMMARY | 2018-06-27 03:04 | XMS REPORT | Clinical Summary ---
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 [...] 07/27/2017 Emergency Emergency Medicine - 07/28/2017 after 06/26/2017 Immunizations Name Dates Previously Given Next Due [...] POC Routine 07/27/2017 7:23 PM CDT after 06/26/2017 Results * 12 LEAD EKG (07/27/2017 11:40 PM CDT) 12 LEAD EKG FOR SMS [facility] Test Date:2017-07-27 Pat Name: ARELY JOY Department: Room: Gender: F Properties Supervisor: [id number] :1986-0 06-16 Requested By: Order Number: [id number] MD: Omar CODY Measurements Intervals [place] Rate: 79 P:46 [place]: 163 QRS: 38 QRSD: 88 T:67 QT: [...] MD, 07/27/2017 10:20 PM Performing Organization Address [facility] Phone Number SMS * POCT URINE DIPSTICK - (07/27/2017 9:27 PM CDT) pass Control negative * UA CHEMISTRIES (07/27/2017 9:20 PM CDT) Color Yellow [facility] MAIN-STATION 2 Clarity Hazy [facility] MAIN-STATION 2 Spec Donie 1.012 1.001 - 1.035 [facility] MAIN-STATION 2 [...] MAIN-STATION 2 Specimen Urine Performing Organization Address [facility] Phone Number [facility] MAIN-STATION 2 * [...] MAIN-STATION 1 Specimen Blood Performing Organization Address [facility]/Zipcode Phone Number MIS[facility] MAIN-STATION 1 * LIPASE (07/27/2017 7:50 PM CDT) Lipase 78 73 - 393 U/L [facility] MAIN-STATION 1 Specimen Blood Performing Organization Address [facility] Phone Number [facility] MAIN-STATION 1 * CBC/DIFF (07/27/2017 [...] Abs 0.53 (H) 0.24 - 0.36 K/uL [facility] MAIN-STATION 2 Eosinophil, Abs 0.01 (L) 0.04 - 0.36 K/uL [facility] MAIN-STATION 2 Basophil, Abs 0.02 0.01 - 0.08 K/uL [facility] MAIN-STATION 2 Absol Immat 0.02 0.00 - 0.03 K/uL [facility] Gran MAIN-STATION 2 Specimen Blood Performing Organization Address [facility] Phone Number [facility] MAIN-STATION 2 * VBG POC (07/27/2017 7:23 PM CDT) pH, Carol POC 7.63 (H)Comment: Spec sent to 7.33 - 7.43 [facility] Lab MAIN-STATION 1 pCO2, Carol POC 16.7 (L) 38.0 - 50.0 mm Hg [facility] MAIN-STATION 1 pO2, Carol POC 128 (H) 50 - 75 mm Hg [facility] MAIN-STATION 1 Base Deficit, 1 [facility] Carol POC MAIN-STATION 1 HCO3, Carol POC 17.3 (L) 22.0 - 26.0 mmol/L [facility] MAIN-STATION 1 % Sat, Carol POC 100 (H) 60 - 85 % [facility] MAIN-STATION 1 Lactic Acid, 1.10 0.4 - 2.0 mmol/L [facility] Carol POC MAIN-STATION 1 TCO2, CAROL POC 18 (L) 21 - 32 mmol/L [facility] MAIN-STATION 1 Performing Organization Address [facility] Phone Number [facility] MAIN-STATION 1 * BMP POC (07/27/2017 7:23 PM CDT) CO2 POC 19 (L)Comment: Spec sent to 21 - 32 mmol/L [facility] Lab MAIN-STATION 1 Chloride POC 106 98 - 107 mmol/L [facility] MAIN-STATION 1 Potassium POC 3.8 3.50 - 5.10 mmol/L [facility] MAIN-STATION 1 Sodium POC 140 136 - 145 mmol/L [facility] MAIN-STATION 1 Glucose POC 135 (H) 74 - 106 mg/dL [facility] MAIN-STATION 1 Urea Nitrogen 7 7 - 18 mg/dL [facility] POC MAIN-STATION 1 Creatinine POC 0.5 (L) 0.6 - 1.3 mg/dL [facility] MAIN-STATION 1 Calcium Ionized 0.79 (L) 1.15 - 1.29 mmol/L [facility] POC MAIN-STATION 1 Hemoglobin POC 12.9 12.0 - 16.0 g/dL [facility] MAIN-STATION 1 Hematocrit POC 38.0 37.0 - 47.0 % [facility] MAIN-STATION 1 GFR, Estimated >60 mL/min/1.73 m2 [facility] MAIN-STATION 1 GFR, Estim, >60 mL/min/1.73 m2 [facility] Afr-Am MAIN-STATION 1 Performing Organization Address City/State/Zipcode Phone Number MIS[facility] MAIN-STATION 1 after 06/26/2017
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
--- OUTSIDE RECORDS SUMMARY | 2018-06-27 03:06 | XMS REPORT | Clinical Summary ---
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 Name Role Phone PCP Unavailable Allergies No [...] 07/27/2017 Emergency Emergency Medicine - 07/28/2017 after 04/26/2017 Immunizations Name Dates Previously Given Next Due [...] POC Routine 07/27/2017 7:23 PM CDT after 04/26/2017 Results * 12 LEAD EKG (07/27/2017 11:40 PM CDT) 12 LEAD EKG FOR SMS [facility] Jae Nash [facility] Test Date:2017-07-27 Pat Name: ARELY JOY Department: Room: Gender: F 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: [id number] :1986-0 06-16 Requested By: Order Number: [id number] [id number] MD: Omar CODY Measurements Intervals [place] Rate: 79 P:46 [place]: 163 QRS: 38 QRSD: 88 T:67 QT: [...] MD, 07/27/2017 10:20 PM Performing Organization Address [facility] Phone Number SMS * POCT URINE DIPSTICK - (07/27/2017 9:27 PM CDT) pass Control negative * UA CHEMISTRIES (07/27/2017 9:20 PM CDT) Color Yellow [facility]-ST[facility] 2 Clarity Hazy [facility] 2 Spec [place] 1.012 1.001 - 1.035 [facility] 2 [...] Performing Organization Address [facility]/[place] Phone Number MISYS [facility] 2 * [...] Performing Organization Address [facility]/Zipcode Phone Number MISYS [facility] MAIN-STATION 1 * LIPASE (07/27/2017 7:50 PM CDT) Lipase 78 73 - 393 U/L [facility] MAIN-STATION 1 Specimen Blood Performing Organization Address [facility] Phone Number MISYS [facility] MA[facility]-STATION 1 * CBC/DIFF (07/27/2017 [...] Abs 0.53 (H) 0.24 - 0.36 K/uL [facility] MAIN-STATION 2 Eosinophil, Abs 0.01 (L) 0.04 - 0.36 K/uL [facility] MAIN-STATION 2 Basophil, Abs 0.02 0.01 - 0.08 K/uL [facility] MAIN-STATION 2 Absol Immat 0.02 0.00 - 0.03 K/uL [facility] Gran MAIN-STATION 2 Specimen Blood Performing Organization Address [facility] Phone Number [facility] MAIN-STATION 2 * VBG POC (07/27/2017 7:23 PM CDT) pH, Carol POC 7.63 (H)Comment: Spec sent to 7.33 - 7.43 [facility] Lab MAIN-STATION 1 pCO2, Carol POC 16.7 (L) 38.0 - 50.0 mm Hg [facility] MAIN-STATION 1 pO2, Carol POC 128 (H) 50 - 75 mm Hg [facility] MAIN-STATION 1 Base Deficit, 1 [facility] Carol POC MAIN-STATION 1 HCO3, Carol POC 17.3 (L) 22.0 - 26.0 mmol/L [facility] MAIN-STATION 1 % Sat, Carol POC 100 (H) 60 - 85 % [facility] MAIN-STATION 1 Lactic Acid, 1.10 0.4 - 2.0 mmol/L [facility] Carol POC MAIN-STATION 1 TCO2, CAROL POC 18 (L) 21 - 32 mmol/L [facility] MAIN-STATION 1 Performing Organization Address [facility]/[place] Phone Number [facility] MAIN-STATION 1 * BMP POC (07/27/2017 7:23 PM CDT) CO2 POC 19 (L)Comment: Spec sent to 21 - 32 mmol/L [facility] Lab MAIN-STATION 1 Chloride POC 106 98 - 107 mmol/L [facility] MAIN-STATION 1 Potassium POC 3.8 3.50 - 5.10 mmol/L [facility] MAIN-STATION 1 Sodium POC 140 136 - 145 mmol/L [facility] MAIN-STATION 1 Glucose POC 135 (H) 74 - 106 mg/dL [facility] MAIN-STATION 1 Urea Nitrogen 7 7 - 18 mg/dL [facility] POC MAIN-STATION 1 Creatinine POC 0.5 (L) 0.6 - 1.3 mg/dL [facility] MAIN-STATION 1 Calcium Ionized 0.79 (L) 1.15 - 1.29 mmol/L [facility] POC MAIN-STATION 1 Hemoglobin POC 12.9 12.0 - 16.0 g/dL [facility] 1 Hematocrit POC 38.0 37.0 - 47.0 % [facility] MAIN-STATION 1 GFR, Estimated >60 mL/min/1.73 m2 [facility] MAIN-STATION 1 GFR, Estim, >60 mL/min/1.73 m2 [facility] Afr-Am MAIN-STATION 1 Performing Organization Address City/State/Zipcode Phone Number MISYS [facility] MAIN-STATION 1 after 04/26/2017
--- OUTSIDE RECORDS SUMMARY | 2018-06-27 03:06 | XMS REPORT | Clinical Summary ---
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 Ground Services: [id number] :1986-0 06-16 Requested By: Order Number: [id number] [id number] MD: Omar CODY Measurements Intervals [place] Rate: 79 P:46 [place]: 163 QRS: 38 QRSD: 88 T:67 QT: [...] MD, 07/27/2017 10:20 PM Performing Organization Address [facility] Phone Number SMS * POCT URINE DIPSTICK - (07/27/2017 9:27 PM CDT) pass Control negative * UA CHEMISTRIES (07/27/2017 9:20 PM CDT) Color Yellow [facility] 2 Clarity Hazy [facility] 2 Spec [place] 1.012 1.001 - 1.035 [facility] 2 [...] MAIN-STATION 2 Specimen Urine Performing Organization Address [facility] Phone Number MISYS [facility] MAIN-STATION 2 * [...] MAIN-STATION 1 Specimen Blood Performing Organization Address [facility]/Zipcode Phone Number MISYS [facility] MAIN-STATION 1 * LIPASE (07/27/2017 7:50 PM CDT) Lipase 78 73 - 393 U/L [facility] MAIN-STATION 1 Specimen Blood Performing Organization Address [facility] Phone Number MISYS [facility] MAIN-STATION 1 * CBC/DIFF (07/27/2017 7:50 [...] Abs 0.53 (H) 0.24 - 0.36 K/uL [facility] MAIN-STATION 2 Eosinophil, Abs 0.01 (L) 0.04 - 0.36 K/uL [facility] MAIN-STATION 2 Basophil, Abs 0.02 0.01 - 0.08 K/uL [facility] MAIN-STATION 2 Absol Immat 0.02 0.00 - 0.03 K/uL [facility] Gran MAIN-STATION 2 Specimen Blood Performing Organization Address [facility] Phone Number [facility] MAIN-STATION 2 * VBG POC (07/27/2017 7:23 PM CDT) pH, Carol POC 7.63 (H)Comment: Spec sent to 7.33 - 7.43 [facility] Lab MAIN-STATION 1 pCO2, Carol POC 16.7 (L) 38.0 - 50.0 mm Hg [facility] MAIN-STATION 1 pO2, Carol POC 128 (H) 50 - 75 mm Hg [facility] MAIN-STATION 1 Base Deficit, 1 [facility] Carol POC MAIN-STATION 1 HCO3, Carol POC 17.3 (L) 22.0 - 26.0 mmol/L [facility] MAIN-STATION 1 % Sat, Carol POC 100 (H) 60 - 85 % [facility] MAIN-STATION 1 Lactic Acid, 1.10 0.4 - 2.0 mmol/L [facility] Carol POC MAIN-STATION 1 TCO2, CAROL POC 18 (L) 21 - 32 mmol/L [facility] MAIN-STATION 1 Performing Organization Address [facility] Phone Number [facility] MAIN-STATION 1 * BMP POC (07/27/2017 7:23 PM CDT) CO2 POC 19 (L)Comment: Spec sent to 21 - 32 mmol/L [facility] Lab MAIN-STATION 1 Chloride POC 106 98 - 107 mmol/L [facility] MAIN-STATION 1 Potassium POC 3.8 3.50 - 5.10 mmol/L [facility] MAIN-STATION 1 Sodium POC 140 136 - 145 mmol/L [facility] MAIN-STATION 1 Glucose POC 135 (H) 74 - 106 mg/dL [facility] MAIN-STATION 1 Urea Nitrogen 7 7 - 18 mg/dL [facility] POC MAIN-STATION 1 Creatinine POC 0.5 (L) 0.6 - 1.3 mg/dL [facility] MAIN-STATION 1 Calcium Ionized 0.79 (L) 1.15 - 1.29 mmol/L [facility] POC MAIN-STATION 1 Hemoglobin POC 12.9 12.0 - 16.0 g/dL [facility]ST[facility] 1 Hematocrit POC 38.0 37.0 - 47.0 % [facility] MAIN-STATION 1 GFR, Estimated >60 mL/min/1.73 m2 [facility] MAIN-STATION 1 GFR, Estim, >60 mL/min/1.73 m2 [facility] Afr-Am MAIN-STATION 1 Performing Organization Address City/State/Zipcode Phone Number MISYS [facility] MAIN-STATION 1 after 05/22/2017
[2018-06-27] MEDS ORDERED: DICYCLOMINE HCL 20 MG TAB PO ONE (04:00)
[2018-06-27] MEDS ORDERED: KETOROLAC TROMETHAMINE 60 MG/2 ML VIAL IM ONE (04:00)
[2018-06-27] MEDS ORDERED: ONDANSETRON HCL 4 MG ORAL DISINTEGRATING TAB PO ONE (04:00)
[2018-06-27] MEDS ORDERED: DICYCLOMINE HCL20 MG PO (05:03)
[2018-06-27] MEDS ORDERED: ONDANSETRON ODT8 MG PO (05:04)
== END 2018-06-27 05:19 | disposition home or self-care (01) ==
LOC: FSED 03:01
DX: R10.11 Right upper quadrant pain (principal); E11.65 Type 2 diabetes mellitus with hyperglycemia; Z21 Asymptomatic human immunodeficiency virus [HIV] infection status
CPT/HCPCS: 80048; 80076; 81025; 85025; 99283

== ENCOUNTER 2021-06-23 19:37 | Emergency (ER) | payer OTHER ==
[~2021-06-23] VITALS: Ht 167.6 cm; Wt 70.3 kg
[~2021-06-23 19:37] MED LIST changes: +DICYCLOMINE HCL20 MG PO; +ONDANSETRON ODT8 MG PO
[2021-06-23] MEDS ORDERED: KETOROLAC TROMETHAMINE 30 MG/ML VIAL IV STA (19:42)
[2021-06-23] MEDS: Vancomycin IV 1 GM in SODIUM CHLORIDE 0.9% 250ML 250 ML IV ONE ×2 (19:45→20:45)
[2021-06-23 20:57] LABS: BASOPHILS % 0.7 % (0.0-1.0); EOSINOPHILS # (AUTO) 0.1 (0.0-0.4); EOSINOPHILS % 1.5 % (0.0-6.0); HEMATOCRIT 41.6 % (34.2-44.1); HEMOGLOBIN 13.9 g/dL (12.0-16.0); LYMPHOCYTES # (AUTO) 2.1 (1.0-3.2); LYMPHOCYTES % 33.7 % (18.0-39.1); MEAN CORPUSCULAR HEMOGLOBIN 28.9 pg (28-32); MEAN CORPUSCULAR HGB CONC 33.4 g/dL (31-35); MEAN CORPUSCULAR VOLUME 86.5 fL (81-99); MONOCYTES # (AUTO) 0.6 (0.2-0.8); MONOCYTES % 9.2 % (4.4-11.3); NEUTROPHILS # (AUTO) 3.4 (2.1-6.9); NEUTROPHILS % 54.7 % (38.7-80.0); PLATELET COUNT 190 x10e3/uL (140-360); RED BLOOD COUNT 4.81 x10e6/uL (3.6-5.1); RED CELL DISTRIBUTION WIDTH 14.5 % (11.7-14.4)
[2021-06-23 21:17] LABS: ALBUMIN 3.3 g/dL (3.5-5.0); ALBUMIN/GLOBULIN RATIO 0.8 (0.8-2.0); ANION GAP 16.1 mmol/L (8-16); CALCIUM 8.1 mg/dL (8.4-10.2); CREATININE, SERUM 0.58 mg/dL (0.57-1.11); POTASSIUM 4.1 mmol/L (3.5-5.1)
[2021-06-23 22:09] VITALS: BP 133/82
== END 2021-06-23 22:00 | disposition home or self-care (01) ==
LOC: ER 19:43
DX: S91.332A Puncture wound without foreign body, left foot, 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 (principal); L08.9 Local infection of the skin and subcutaneous tissue, unspecified; E11.9 Type 2 diabetes mellitus without complications; Z21 Asymptomatic human immunodeficiency virus [HIV] infection status; I10 Essential (primary) hypertension; W45.0XXA Nail entering through skin, 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
CPT/HCPCS: 36415; 73630; 80053; 85025; 99284; J1885; J3370; J7050